=== PATIENT | female | born 1970 | race Caucasian/White ===

== ENCOUNTER 2018-06-08 15:35 | Emergency (ER) | payer OTHER ==
--- OUTSIDE RECORDS SUMMARY | 2018-06-08 15:46 | XMS REPORT | Continuity of Care Document ---
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 H/O: Active Problem 10/26/2017 [facility] hypothyroidism [facility] Morbid obesity Active Problem 10/26/2017 [facility] Motion sickness Active Problem 10/26/2017 [facility] BREAKDOWN Active [facility] (MECHANICAL) OF [place] PROSTH DEV/ Medications Medication Details Route Status Patient Ordering Order Source Instructions Provider Date ferrous sulfate 325 mg=1 tab, Active 325 mg oral PO, Daily, # [address] [place] [address] enteric coated tab, 3 Refill(s) [facility] tablet 1/2NS + KCL 1,000 mL, Rate: No Longer 20mEq/L 1000ml 80 ml/hr, Infuse [address] ([facility]) 1,000 over: 12.5 hr, [facility] mL Route: IV, Dosing Weight 113.636 kg, Total Volume: 1,000, Start date: 10/22/17 6:00:00 EDGER LINER, Duration: 30 day, Stop date: 11/21/17 5:59:00 EDGER LINER, 2.35, [id number]: PREMIX IV - Do Not Alter WASTE: F/P - Sink; E - [employer] heparin sodium, 5,000 unit, 1 No Longer porcine 2500 mL, Route: [address] UNT/ML SUB-Q, Drug [facility] Injectable form: INJ, Q12H, Solution Dosing Weight 113.636, kg, Start date: 10/22/17 3:00:00 EDGER LINER, Duration: 30 day, Stop date: 11/20/17 15:00:00 CSTNotes: porcine heparin Famotidine 20 mg, 2 mL, No Longer Route: IVP, Drug [address] form: INJ, Q12H, [facility] Dosing Weight 113.636, kg, Start date: 10/21/17 21:00:00 EDGER LINER, Duration: 30 day, Stop date: 11/20/17 9:00:00 CSTNotes: (Same as: Pepcid) Can be dilute in 5-10cc NS IVP: Slow IV push over at least 2 minutes. sugammadex Route: IV, Drug Inactive (ANES) form: SOLN, [address] [place] [address] ONCE, Stop date: [facility] 10/21/17 14:38:00 EDGER LINER ketOROLAC IV, ONCE Inactive 10/21[facility] (ANES) [address] [place] [address] ondansetron Route: IV, Drug Inactive 10/21[facility] (ANES) form: INJ, ONCE, 2016 [facility] Stop date: [facility] 10/21/17 14:38:00 EDGER LINER Morphine 2 mg, Route: Inactive 10/21[facility] IVP, Q5Min, [address] [place] [address] Dosing Weight [facility] 113.636, kg, PRN Pain Score 4-6, Start date: 10/21/17 14:26:00 EDGER LINER, Duration: 5 doses or times, Stop date: Limited # of times Flumazenil 0.2 mg, Route: Inactive 10/21[facility] IVP, PRN, Dosing 2016 [facility] Weight 113.636, City kg, PRN Benzodiazepine Reversal, Initial dose, Start date: 10/21/17 14:26:00 EDGER LINER, Duration: 30 day, Stop date: 11/20/17 14:25:00 EDGER LINER Naloxone 0.4 mg, Route: Inactive 10/21[facility] IVP, Q2MIN, 2016 [facility] Dosing Weight [facility] 113.636, kg, PRN Narcotic Reversal, Start date: 10/21/17 14:26:00 EDGER LINER, Duration: 8 doses or times, Stop date: Limited # of times Hydromorphone 0.5 mg, Route: Inactive 10/21[facility] IVP, Q5Min, 2016 [facility] Dosing Weight [facility] 113.636, kg, PRN Pain Score 7-10, Start date: 10/21/17 14:26:00 EDGER LINER, Duration: 4 doses or times, Stop date: Limited # of times Promethazine 6.25 mg, Route: Inactive 10/21[facility] IVPB, ONCE, 2016 [facility] Dosing Weight [facility] 113.636, kg, PRN Nausea & Vomiting, Start date: 10/21/17 14:26:00 EDGER LINER Ondansetron 4 mg, Route: Inactive IVP, ONCE, 2016 [facility] Dosing Weight [facility] 113.636, kg, PRN Nausea & Vomiting, Start date: 10/21/17 14:26:00 EDGER LINER Calcium 1,000 mL, Rate: Inactive Chloride 0.0014 125 ml/hr, 2016 [facility] MEQ/ML / Infuse over: 8 City Potassium hr, Route: IV, Chloride 0.004 Dosing Weight MEQ/ML / Sodium 113.636 kg, Chloride 0.103 Total Volume: MEQ/ML / Sodium 1,000, Start Lactate 0.028 date: 10/21/17 MEQ/ML 14:26:00 EDGER LINER, Injectable Duration: 30 Solution day, Stop date: 11/20/17 14:25:00 EDGER LINER, 2.35, m2 fentaNYL (ANES) Route: IV, Drug Inactive MH form: INJ, ONCE, 2016 [facility] Stop date: [facility] 10/21/17 13:50:00 EDGER LINER ePHEDrine Route: IV, Drug Inactive MH (ANES) form: INJ, ONCE, 2016 [facility] Stop date: [facility] 10/21/17 12:44:00 EDGER LINER dexamethasone Route: IV, Drug Inactive MH (ANES) form: INJ, ONCE, 2016 [facility] Stop date: [facility] 10/21/17 12:24:00 EDGER LINER famotidine Route: IV, Drug Inactive MH (ANES) form: INJ, ONCE, 2016 [facility] Stop date: [facility] 10/21/17 12:24:00 EDGER LINER scopolamine Route: Inactive MH (ANES) Transdermal, 2016 [facility] Drug form: [facility] ERFILM, ONCE, Stop date: 10/21/17 12:24:00 EDGER LINER midazolam Route: IV, Drug Inactive MH (ANES) form: SOLN, 2016 [facility] ONCE, Stop date: [facility] 10/21/17 12:19:00 EDGER LINER fentaNYL (ANES) Route: IV, Drug Inactive MH form: INJ, ONCE, 2016 [facility] Stop date: [facility] 10/21/17 12:19:00 EDGER LINER lidocaine Route: IV, Drug Inactive 10/21/ MH (ANES) form: INJ, ONCE, 2016 [facility] Stop date: [facility] 10/21/17 12:19:00 EDGER LINER propofol (ANES) Route: IV, Drug Inactive MH form: INJ, ONCE, 2016 [facility] Stop date: [facility] 10/21/17 12:19:00 EDGER LINER rocuronium Route: IV, Drug Inactive (ANES) form: INJ, ONCE, 2016 [facility] Stop date: [facility] 10/21/17 12:19:00 EDGER LINER ceFAZolin Route: IV, Drug Inactive (ANES) form: INJ, ONCE, 2016 [facility] Stop date: [facility] 10/21/17 12:19:00 EDGER LINER acetaminophen Route: IV, Drug Inactive (ANES) 10 mg form: INJ, Start 2016 [facility] date: 10/21/17 [facility] 12:00:00 EDGER LINER, Stop date: 10/21/17 13:00:00 EDGER LINER Lactated Route: IV, Total Inactive Ringers Volume: 1,000, 2016 [facility] Injection IV Start date: [facility] (ANES) 1000 mL 10/21/17 11:30:00 EDGER LINER, Stop date: 10/21/17 12:30:00 EDGER LINER 1/2NS + KCL 1,000 mL, Rate: No Longer 20mEq/L 1000ml 125 ml/hr, Active 2016 [facility] ([facility]) 1,000 Infuse over: 8 City mL hr, Route: IV, Dosing Weight 113.636 kg, Total Volume: 1,000, Start date: 10/21/17 11:09:00 EDGER LINER, Stop date: 10/22/17 6:00:00 EDGER LINER, 2.35, [id number]: PREMIX IV - Do Not Alter WASTE: F/P - Sink; E - [employer] Trash Bin Saline Flush 10 ml, Route: No Longer 0.9% IVP, Drug Form: Active 2016 [facility] INJ, Dosing City Weight 113.636, kg, PRN, PRN Line Flush, Start date: 10/21/17 11:09:00 EDGER LINER, Duration: 30 day, Stop date: 11/20/17 11:08:00 CSTNotes: (Same as: BD Posiflush) Morphine 4 mg, 1 mL, No Longer Route: IVP, Drug Active 2016 [facility] form: SOLN, Q4H, [facility] Dosing Weight 113.636, kg, PRN Pain Score 7-10, Start date: 10/21/17 11:09:00 EDGER LINER, Duration: 1 day, Stop date: 10/22/17 11:08:00 CSTNotes: (Same as:MORPhine Sulfate) Demerol HCl 50 mg, 1 mL, No Longer Route: IVP, Drug Active 2016 [facility] form: INJ, Q4H, [facility] Dosing Weight 113.636, kg, PRN Pain Score 6-10, Start date: 10/21/17 11:09:00 EDGER LINER, Duration: 4 day, Stop date: 10/25/17 11:08:00 CSTNotes: (Same as: Demerol) "Use Precaution in Elderly, Seizure disorders, and Renal impairment" tramadol 50 mg, 1 tab, No Longer hydrochloride Route: PO, Drug Active 2016 [facility] 50 MG Oral form: TAB, Q4H, [facility] Tablet Dosing Weight 113.636, kg, PRN Pain Score 1-3, Start date: 10/21/17 11:09:00 EDGER LINER, Duration: 30 day, Stop date: 11/20/17 11:08:00 CSTNotes: Not to exceed 400mg/day. (Same As: Ultram) ketOROLAC 30 30 mg, 1 mL, No Longer mg/mL Route: IVP, Drug Active 2016 [facility] injectable form: INJ, Q6H, [facility] solution Dosing Weight 113.636, kg, PRN Pain Score 4-6, Start date: 10/21/17 11:09:00 EDGER LINER, Duration: 4 day, Stop date: 10/25/17 11:08:00 CSTNotes: (Same as:Toradol) IV bolus must be given >15 seconds. Give IM administration slowly and deeply into the muscle. Not for use > 4 days MEDICATION WASTE Product Size: 30 mg Product Wasted: ___ mg Ofirmev 1,000 mg, 100 No Longer mL, Route: IV, Active 2016 [facility] Drug form: INJ, City PRN, Dosing Weight 113.636, kg, PRN Pain Score 1-3, for > or=50 kg, Start date: 10/21/17 11:09:00 EDGER LINER, Duration: 30 day, Stop date: 11/20/17 11:08:00 CSTNotes: Infuse over 15 minutes Do not exceed 4gm/day of acetaminophen MEDICATION WASTE Product Size: 1000 mg Product Wasted: ___ mg enalaprilat 1.25 mg, 1 mL, No Longer Route: IVP, Drug Active 2016 [facility] form: INJ, Q6H, [facility] Dosing Weight 113.636, kg, PRN Other -See Comment, Start date: 10/21/17 11:09:00 EDGER LINER, Duration: 30 day, Stop date: 11/20/17 11:08:00 EDGER LINER, BP Systolic greater than 190 and BP Diastolic greater than 100 |...Notes: (Same as: Vasotec-IV) Metoprolol 2.5 mg, 2.5 mL, No Longer Route: IVP, Drug Active 2016 [facility] form: INJ, Q6H, [facility] Dosing Weight 113.636, kg, PRN Elevated BP, Systolic BP >180 or Diastolic BP >100, Start date: 10/21/17 11:09:00 EDGER LINER, Duration: 30 day, Stop date: 11/20/17 11:08:00 CSTNotes: (Same as: Lopressor) Push over 2 minutes Promethazine 12.5 mg, 0.5 mL, No Longer Route: IM, Drug Active 2016 [facility] form: INJ, Q4H, [facility] Dosing Weight 113.636, kg, PRN Nausea & Vomiting, Start date: 10/21/17 11:09:00 EDGER LINER, Duration: 30 day, Stop date: 11/20/17 11:08:00 CSTNotes: Do not give IV push. (Same as: Phenergan) Ketorolac 30 mg, Route: Inactive IVP, PRN, Dosing 2016 [facility] Weight 113.636, City kg, PRN Pain Score 1-5, PRN q 6 hrs, Start date: 10/21/17 11:09:00 EDGER LINER, Duration: 6 doses or times, Stop date: Limited # of times Ondansetron 4 mg, 2 mL, No Longer Route: IVP, Drug Active 2016 [facility] form: INJ, Q6H, [facility] Dosing Weight 113.636, kg, PRN Nausea & Vomiting, Start date: 10/21/17 11:09:00 EDGER LINER, Duration: 30 day, Stop date: 11/20/17 11:08:00 CSTNotes: (Same as: Zofran) MEDICATION WASTE Product Size: 4 mg Product Wasted: ___ mg heparin 5,000 unit, 1 Inactive 10/21[facility] mL, Route: 2016 [facility] SUB-Q, Drug [facility] form: INJ, POST OP, Start date: 10/21/17 3:00:00 EDGER LINER, Stop date: 10/21/17 23:00:00 CSTNotes: porcine heparin ceFAZolin + 2 gm, Route: Inactive 10/21[facility] sterile water IVP, PRE OP, 2016 [facility] 20 mL Start date: [facility] 10/21/17 3:00:00 EDGER LINER, Stop date: 10/21/17 23:00:00 EDGER LINER, ABX Indication: Surgical ProphylaxisNotes : (Same As: Ancef Kefzol) MEDICATION WASTE Product Size: 1000 mg Product Wasted: ___ mg levothyroxine 175 microgram=1 Active 10/19[facility] 175 mcg (0.175 tab, PO, Daily, 2016 [facility]) oral tablet # 90 tab, 1 [facility] Refill(s) Allergies, Adverse Reactions, Alerts Substance Category Reaction Severity Reaction Status Date Comments Source type Reported Toprol-XL Assertion Drug Active allergy [facility] Immunizations Immunization Date Given Site Status Last Updated Comments Source Results Order Name Results Value Reference Date Interpretation Comments Source Range CHEM PANEL eGFR 59 10/23 Result Comment: The eGFR is calculated using the CKD-EPI formula. In most young, healthy individuals the eGFR will be >90 mL/ min/1.73m2. The eGFR declines with age. An eGFR of 60-89 may be normal in mL/min/1. /2016 some populations, particularly the elderly, for whom the CKD-EPI formula has not been extensively validated. Use of the eGFR is not recommended in the following populations: [address] Individuals with unstable creatinine concentrations, including patients and those with serious co-morbid conditions. Patients with extremes in muscle mass or diet. The data above are obtained from the National Kidney Disease Education Program (NKDEP) which additionally recommends that when the eGFR is used in patients with extremes of body mass index for purposes of drug dosing, the eGFR should be multiplied by the estimated BMI. CHEM PANEL Creatinine 1.12 mg/dL 0.50 - 10/23 MH Lvl 1.40 [facility] CHEM PANEL Calcium Lvl 8.0 mg/dL 8.5 - 10.5 10/23 [facility] CHEM PANEL CO2 28 meq/L 24 - 32 10/23 [facility] CHEM PANEL Chloride Lvl 106 meq/L 95 - 109 10/23 [facility] CHEM PANEL Sodium Lvl 142 meq/L 135 - 145 10/23 [facility] CHEM PANEL Potassium 4.5 meq/L 3.5 - 5.1 10/23 MH Lvl /2016 [facility] CHEM PANEL BUN 7 mg/dL 7 - 22 10/23 [facility] CHEM PANEL Glucose Lvl 87 mg/dL 70 - 99 10/23 [facility] CHEM PANEL AGAP 12.5 meq/L 10.0 - 10/23 20.0 [facility] HEMATOLOGY Basophils 1.0 % 0.0 - 1.0 10/23 [facility] HEMATOLOGY Lymphocytes 2.1 K/CMM 1.0 - 5.5 10/23 [facility] HEMATOLOGY Eosinophils 1.1 % 0.0 - 4.0 10/23 [facility] HEMATOLOGY Segs-Bands # 3.9 K/CMM 1.5 - 8.1 10/23 [facility] HEMATOLOGY Eosinophils 0.1 K/CMM 0.0 - 0.5 10/23 [facility] HEMATOLOGY Microcyte 2+ None Seen 10/23 [facility] *[facility]* [facility] (10/23/17 6:15 AM) HEMATOLOGY Monocytes # 0.6 K/CMM 0.0 - 0.8 10/23 [facility] HEMATOLOGY Basophils # 0.1 K/CMM 0.0 - 0.2 10/23 [facility] HEMATOLOGY Lymphocytes 31.9 % 20.0 - 10/23 40.0 [facility] HEMATOLOGY Segs 57.8 % 45.0 - 10/23 75.0 [facility] HEMATOLOGY Plt Morph Normal 10/23 [facility] (10/23/17 6:15 AM) [facility] HEMATOLOGY Monocytes 8.2 % 2.0 - 12.0 10/23 [facility] HEMATOLOGY Hgb 8.6 g/dL 12.0 - 10/23 16.0 [facility] HEMATOLOGY Hct 26.8 % 36.0 - 10/23 MH 48.0 [facility] HEMATOLOGY MCH 23.4 pg 27.0 - 10/23 MH 31.0 [facility] HEMATOLOGY MCV 72.7 fL 80.0 - 10/23 MH 98.0 [facility] HEMATOLOGY MCHC 32.2 g/dL 32.0 - 10/23 MH 36.0 [facility] HEMATOLOGY RBC 3.69 M/CMM 4.20 - 10/23 MH 5.40 [facility] HEMATOLOGY WBC 6.7 K/CMM 3.7 - 10.4 10/23 [facility] HEMATOLOGY MPV 9.9 fL 7.4 - 10.4 10/23 [facility] HEMATOLOGY Platelet 264 K/CMM 133 - 450 10/23 [facility] HEMATOLOGY RDW 18.0 % 11.5 - 10/23 14. [facility] ANEMIA TIBC 391 ug/dl 228 - 428 10/22 [facility] ANEMIA Iron 28 ug/dl 30 - 160 10/22 [facility] ANEMIA % S[place] Fe 7 % 12 - 57 10/22 [facility] ANEMIA UIBC 363 ug/dl 110 - 370 10/22 [facility] ANEMIA Ferritin Lvl 5 ng/mL 5 - 204 10/22 [facility] ELECTROLYTE AGAP 13.6 meq/L 10.0 - 10/22 S 20.0 [facility] ELECTROLYTE eGFR 60 10/22 Result Comment: The eGFR is calculated using the CKD-EPI formula. In most young, healthy individuals the eGFR will be >90 mL/ min/1.73m2. The eGFR declines with age. An eGFR of 60-89 may be normal in S mL/min/1. some populations, particularly the elderly, for whom the CKD-EPI formula has not been extensively validated. Use of the eGFR is not recommended in the following populations: [address] Individuals with unstable creatinine concentrations, including patients and those with serious co-morbid conditions. Patients with extremes in muscle mass or diet. The data above are obtained from the National Kidney Disease Education Program (NKDEP) which additionally recommends that when the eGFR is used in patients with extremes of body mass index for purposes of drug dosing, the eGFR should be multiplied by the estimated BMI. ELECTROLYTE BUN 9 mg/dL 7 - 22 10/22 S /2016 [facility] ELECTROLYTE Creatinine 1.10 mg/dL 0.50 - 10/22 S Lvl 1.40 [facility] ELECTROLYTE CO2 28 meq/L 24 - 32 10/22 S /2016 [facility] ELECTROLYTE Glucose Lvl 121 mg/dL 70 - 99 10/22 S [facility] ELECTROLYTE Potassium 4.6 meq/L 3.5 - 5.1 10/22 S Lvl /2016 [facility] ELECTROLYTE Chloride Lvl 102 meq/L 95 - 109 10/22 S [facility] ELECTROLYTE Calcium Lvl 8.2 mg/dL 8.5 - 10.5 10/22 S [facility] ELECTROLYTE Sodium Lvl 139 meq/L 135 - 145 10/22 [facility] HEMATOLOGY Platelet 271 K/CMM 133 - 450 10/22 [facility] HEMATOLOGY RDW 17.9 % 11.5 - 10/22 14. [facility] HEMATOLOGY MCV 71.6 fL 80.0 - 10/22 98.0 [facility] HEMATOLOGY MCHC 32.3 g/dL 32.0 - 10/22 MH 36.0 [facility] HEMATOLOGY MPV 9.5 fL 7.4 - 10.4 10/22 [facility] HEMATOLOGY Hct 27.3 % 36.0 - 10/22 48.0 [facility] HEMATOLOGY Hgb 8.8 g/dL 12.0 - 10/22 16.0 [facility] HEMATOLOGY MCH 23.1 pg 27.0 - 10/22 31.0 [facility] HEMATOLOGY WBC 9.6 K/CMM 3.7 - 10.4 10/22 [facility] HEMATOLOGY RBC 3.81 M/CMM 4.20 - 10/22 MH 5.40 [facility] HEMATOLOGY Microcyte 2+ None Seen 10/22 [facility] (10/22/17 3:37 AM) HEMATOLOGY Lymphocytes 13.7 % 20.0 - 10/22 MH 40.0 [facility] HEMATOLOGY Monocytes 7.3 % 2.0 - 12.0 10/22 [facility] HEMATOLOGY Segs 78.6 % 45.0 - 10/22 MH 75.0 [facility] HEMATOLOGY Basophils 0.4 % 0.0 - 1.0 10/22 [facility] HEMATOLOGY Segs-Bands # 7.5 K/CMM 1.5 - 8.1 10/22 [facility] HEMATOLOGY Lymphocytes 1.3 K/CMM 1.0 - 5.5 10/22 MH # /2017 [facility] HEMATOLOGY Monocytes # 0.7 K/CMM 0.0 - 0.8 10/22 [facility] BLOOD BANK ABO/Rh A POS 10/19 RESULTS [facility] BLOOD BANK Antibody Negative 10/19 RESULTS [facility] (10/19/17 11:22 AM) [facility] CHEM PANEL eGFR 55 10/19 Result Comment: The eGFR is calculated using the CKD-EPI formula. In most young, healthy individuals the eGFR will be >90 mL/ min/1.73m2. The eGFR declines with age. An eGFR of 60-89 may be normal in mL/min/1. some populations, particularly the elderly, for whom the CKD-EPI formula has not been extensively validated. Use of the eGFR is not recommended in the following populations: [address] Individuals with unstable creatinine concentrations, including patients and those with serious co-morbid conditions. Patients with extremes in muscle mass or diet. The data above are obtained from the National Kidney Disease Education Program (NKDEP) which additionally recommends that when the eGFR is used in patients with extremes of body mass index for purposes of drug dosing, the eGFR should be multiplied by the estimated BMI. CHEM PANEL ALT 43 unit/L 0 - 65 10/19 [facility] CHEM PANEL AST 29 unit/L 0 - 37 10/19 [facility] CHEM PANEL Glucose Lvl 102 mg/dL 70 - 99 10/19 [facility] CHEM PANEL Creatinine 1.19 mg/dL 0.50 - 10/19 MH Lvl 1.40 [facility] CHEM PANEL Bili Total 1.4 mg/dL 0.2 - 1.3 10/19 [facility] CHEM PANEL Alk Phos 109 unit/L 39 - 136 10/19 [facility] CHEM PANEL Total 8.2 g/dL 6.4 - 8.4 10/19 [facility] CHEM PANEL Albumin Lvl 3.7 g/dL 3.5 - 5.0 10/19 [facility] CHEM PANEL Calcium Lvl 8.9 mg/dL 8.5 - 10.5 10/19 [facility] CHEM PANEL CO2 29 meq/L 24 - 32 10/19 [facility] CHEM PANEL Chloride Lvl 102 meq/L 95 - 109 10/19 [facility] CHEM PANEL Potassium 3.7 meq/L 3.5 - 5.1 10/19 MH Lvl /2016 [facility] CHEM PANEL Sodium Lvl 141 meq/L 135 - 145 10/19 [facility] CHEM PANEL BUN 10 mg/dL 7 - 22 10/19 [facility] CHEM PANEL B/C Ratio 8 6 - 25 10/19 [facility] CHEM PANEL Globulin 4.5 g/dL 2.7 - 4.2 10/19 [facility] CHEM PANEL A/G Ratio 0.8 0.7 - 1.6 10/19 [facility] CHEM PANEL AGAP 13.7 meq/L 10.0 - 10/19 MH 20.0 /2016 [facility] CHEM PANEL VITAMIN B1 92.5 66.5 - 10/19 Result Comment: (THIAMINE) nMol/L 200.0 This test was developed and its performance characteristics [facility] WHOLE BLOOD determined by [employer]. It has not been cleared or City approved by the Food and Drug Administration. Performed At: [facility] [id number] Mylene Ricardo MD Ph:[phone] HEMATOLOGY Lymphocytes 28.5 % 20.0 - 10/19 MH 40.0 /2016 [facility] HEMATOLOGY Monocytes 8.8 % 2.0 - 12.0 10/19 /2016 [facility] HEMATOLOGY Monocytes # 0.5 K/CMM 0.0 - 0.8 10/19 /2016 [facility] HEMATOLOGY Eosinophils 0.5 K/CMM 0.0 - 0.5 10/19 MH # /2017 [facility] HEMATOLOGY Basophils # 0.1 K/CMM 0.0 - 0.2 10/19 /2016 [facility] HEMATOLOGY Segs 52.3 % 45.0 - 10/19 MH 75.0 /2017 [facility] [place] HEMATOLOGY Eosinophils 9.3 % 0.0 - 4.0 10/19 /2016 [facility] HEMATOLOGY Lymphocytes 1.6 K/CMM 1.0 - 5.5 10/19 MH # /2017 [facility] [place] HEMATOLOGY Basophils 1.1 % 0.0 - 1.0 10/19 [facility] [place] HEMATOLOGY Segs-Bands # 2.9 K/CMM 1.5 - 8.1 10/19 [facility] [place] HEMATOLOGY Microcyte 2+ None Seen 10/19 [facility]* [facility] (10/19/17 11:22 AM) HEMATOLOGY RBC 4.83 M/CMM 4.20 - 10/19 5.40 /2016 [facility] [place] HEMATOLOGY WBC 5.5 K/CMM 3.7 - 10.4 10/19 [facility] [place] HEMATOLOGY Hgb 11.2 g/dL 12.0 - 10/19 16.0 [facility] [place] HEMATOLOGY MCV 72.0 fL 80.0 - 10/19 98.0 /2016 [facility] [place] HEMATOLOGY Hct 34.8 % 36.0 - 10/19 48.0 [facility] [place] HEMATOLOGY MPV 9.3 fL 7.4 - 10.4 10/19 [facility] [place] HEMATOLOGY MCH 23.2 pg 27.0 - 10/19 31.0 [facility] [place] HEMATOLOGY RDW 18.5 % 11.5 - 10/19 14.5 [facility] [place] HEMATOLOGY MCHC 32.1 g/dL 32.0 - 10/19 36.0 [facility] [place] HEMATOLOGY Platelet 311 K/CMM 133 - 450 10/19 [facility] [place] Chest 2 Chest 2 Exam: Chest X-ray 2 views : 10/19 - views DX views DX /2016 - [facility] CLINICAL HISTORY: Dizziness - Dizziness. Read by: Lashay Arvizu MD Dictated Date/time: 10/19/17 13:25 Electronically Signed by: Lashay Arvizu MD 10/19/17 13:28 FINAL REPORT Comparison: None. Findings: PA and lateral views of the chest are obtained. The heart size is normal. The hilar and mediastinal structures are normal. The lungs are clear without consolidation or effusion. No acute bony abnormality. Pulmonary vascularity is normal. Impression: No active disease . Vital Signs Vital Sign Value Date Comments Source Systolic (mm Hg) 109 10/23/2017 [facility] Diastolic (mm Hg) 74 10/23/2017 [facility] Respitory Rate 18 10/23/2017 [facility] Heart Rate 68 10/23/2017 [facility] Temperature Oral (F) 98.0 F 10/23/2017 [facility] Heart Rate 80 10/23/2017 [facility] Temperature Oral (F) 98.2 F 10/23/2017 [facility] Respitory Rate 18 10/23/2017 [facility] Systolic (mm Hg) 110 10/23/2017 [facility] Diastolic (mm Hg) 68 10/23/2017 [facility] Heart Rate 56 10/23/2017 [facility] Systolic (mm Hg) 124 10/23/2017 [facility] Diastolic (mm Hg) 75 10/23/2017 [facility] Respitory Rate 18 10/23/2017 [facility] Temperature Oral (F) 98.5 F 10/23/2017 [facility] BMI Calculated 39.24 10/19/2017 [facility] Weight 113.636 10/19/2017 [facility] Height 170.18 cm 10/19/2017 [facility] Encounters Location Location Encounter Encounter Reason Attending ADM DC Status Source Details Type Number For Provider Date Date Visit [facility] Inpatient [id number] [place] 10/21 10/23 Julio Cesar Sánchezel /2016 [facility] Procedures Procedure Code Date Perfomer Comments Source Duodenal switch [id number] 10/21/2017 [facility] Bariatric operative [id number] Gastric Band [facility] procedure<sup>1[place] p> [id number] X 2 [facility] section<sup>2</sup> [facility] Miscellaneous [id number] revision of [facility] operations<sup>3</s Lap. Band. City up>
[2018-06-08] MEDS ORDERED: METHYLPREDNISOLONE 125 MG INJ ONE (16:26)
[2018-06-08] MEDS ORDERED: DIPHENHYDRAMINE 50 MG/ML VIAL ONE (16:27)
[2018-06-08] MEDS ORDERED: NA CHLORIDE 0.9% 1,000 ML ONE (16:27)
[2018-06-08] MEDS ORDERED: FAMOTIDINE 20 MG/2 ML VIAL IV ONE (16:28)
--- NOTE | 2018-06-08 17:13 | ER ---
Nurse's Notes [facility] Name: Krista Watt Age: 47 yrs Sex: Female : 1970 Arrival Date: 06/08/2018 Time: 15:36 Bed 16 Private MD: Eran Palacios C Diagnosis: Rash and other nonspecific skin eruption Presentation: 06/08 15:52 Presenting complaint: Patient states: i had an iron infusion the 2nd time around 2:15pm today and after the infusion i felt itchy all over my body;. Transition of care: patient was not received from another setting of care. Onset: The symptoms/episode began/occurred suddenly. Anaphylaxis evaluation, no signs or symptoms of anaphylaxis were noted. Onset of symptoms was June 08, 2018. Risk Assessment: Do you want to hurt yourself or someone else? Patient reports no desire to harm self or others. Initial Sepsis Screen: Does the patient meet any 2 criteria? No. Patient's initial sepsis screen is negative. Does the patient have a suspected source of infection? No. Patient's initial sepsis screen is negative. Care prior to arrival: None. 15:52 Method Of Arrival: Ambulatory 15:52 Acuity: TERESA 4 Triage Assessment: 15:55 General: Appears in no apparent distress. uncomfortable, Behavior is calm, cooperative, hj appropriate for age. Pain: Denies pain. 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 - Social history:: Smoking status: Patient/guardian denies using tobacco, Patient/guardian denies using alcohol. - Ebola Screening: : Patient negative for fever greater than or equal to 101.5 degrees Fahrenheit, and additional compatible Ebola Virus Disease symptoms Patient denies exposure to infectious person Patient denies travel to an Ebola-affected area in the 21 days before illness onset. - Family history:: not pertinent. - Hospitalizations: : No recent hospitalization is reported. Screenin:55 Abuse screen: Denies threats or abuse. Denies injuries from another. Nutritional hj screening: No deficits noted. Tuberculosis screening: No symptoms or risk factors identified. Fall Risk None identified. Assessment: 15:55 Respiratory: Airway is patent Respiratory effort is even, unlabored, Breath sounds are hj clear. 16:05 General: Appears uncomfortable, Behavior is calm, cooperative. Pain: Denies pain. aa5 Neuro: Level of Consciousness is awake, alert, obeys commands, Oriented to person, place, time, situation. Cardiovascular: Heart tones S1 S2 present Rhythm is regular. Respiratory: Airway is patent Respiratory effort is even, unlabored, Respiratory pattern is regular, symmetrical, Breath sounds are clear bilaterally. GI: No signs and/or symptoms were reported involving the gastrointestinal system. : No signs and/or symptoms were reported regarding the genitourinary system. EENT: No signs and/or symptoms were reported regarding the EENT system. Derm: Skin is pink, warm \T\ dry. Rash noted that is itchy, red, raised, on all over body. Musculoskeletal: Range of motion: intact in all extremities. 16:50 Reassessment: Patient and/or family updated on plan of care and expected duration. Pain aa5 level reassessed. Patient is alert, oriented x 3, equal unlabored respirations, skin warm/dry/pink. Patient states feeling better. Pt currently denies itchiness, rash has improved in appearance. . 16:50 General: Appears comfortable. aa5 17:20 Reassessment: Patient is alert, oriented x 3, equal unlabored respirations, skin aa5 warm/dry/pink. Vital Signs: 15:56 BP 111 / 60; Pulse 75; Resp 18; Temp 98.3(TE); Pulse Ox 98% on R/A; Weight 88 kg; hj Height 5 ft. 7 in. (170.18 cm); Pain 0/10; 16:27 BP 130 / 76; Pulse 62; Resp 16 S; Pulse Ox 100% on R/A; aa5 15:56 Body Mass Index 30.39 (88.00 kg, 170.18 cm) ED Course: 15:36 Patient arrived in ED. rg4 15:37 Eran Palacios MD is Private Physician. rg4 15:54 Triage completed. 15:56 Arm band placed on right wrist. hj 15:56 Patient has correct armband on for positive identification. Bed in low position. Call hj light in reach. Side rails up X 1. 16:03 Susy Ken FNP [facility]. kav 16:03 Chato Boykin MD is Attending Physician. kav 16:18 Sandra Olson, RN is Primary Nurse. aa5 16:20 Inserted saline lock: 20 gauge in left antecubital area, using aseptic technique. aa5 16:39 No provider procedures requiring assistance completed. aa5 17:12 Eran Palacios MD is Referral Physician. kav 17:22 IV discontinued, intact, bleeding controlled, No redness/swelling at site. Pressure aa5 dressing applied. Administered Medications: 16:20 Drug: NS 0.9% 1000 ml Route: IV; Rate: 1000 ml; Site: left antecubital; aa5 17:20 Follow up: IV Status: Completed infusion aa5 16:20 Drug: Benadryl 50 mg Route: IVP; Site: left antecubital; aa5 16:30 Follow up: Response: No adverse reaction aa5 16:20 Drug: SOLU-Medrol 125 mg Route: IVP; Site: left antecubital; aa5 16:30 Follow up: Response: No adverse reaction aa5 16:20 Drug: Pepcid 20 mg Route: IVP; Site: left antecubital; aa5 16:30 Follow up: Response: No adverse reaction aa5 Outcome: 17:12 Discharge ordered by MD. kav 17:23 Discharged to home ambulatory, with family. aa5 17:23 Condition: improved 17:23 Discharge instructions given to patient, Instructed on discharge instructions, follow up and referral plans. medication usage, Demonstrated understanding of instructions, follow-up care, medications, Prescriptions given X 2. 17:25 Patient left the ED. aa5 Signatures: Susy Ken FNP DATE PULLER Sandra Tipton, RN RN aa5 Hadley Lehman RN RN Niecy Davila rg4 Corrections: (The following items were deleted from the chart) 15:59 15:56 Pulse 75bpm; Resp 18bpm; Pulse Ox 98% RA; Temp 98.3F Temporal; 88 kg; Height 5 hj ft. 7 in.; BMI: 30.3; Pain 0/10; hj
--- NOTE | 2018-06-08 17:13 | EDPHYS ---
Physician Documentation [facility] Name: Krista Watt Age: 47 yrs Sex: Female : 1970 Arrival Date: 06/08/2018 Time: 15:36 Bed 16 Private MD: Eran Palacios C ED Physician Chato Boykin HPI: 06/08 16:04 This 47 yrs old Female presents to ER via Ambulatory with complaints of kav Allergic Reaction. 16:09 The patient presents with itching, rash, redness of skin. Onset: The symptoms/episode kav began/occurred acutely, just prior to arrival. Associated signs and symptoms: Pertinent positives: rash, Pertinent negatives: Altered mental status fever, headache, hives, shortness of breath, swelling, vomiting. Possible causes: patient reports that she just received an iron infusion and then developed itching, and rash diffusely over entire body. At home the patient or guardian has treated the symptoms with nothing. Severity of symptoms: At their worst the symptoms were moderate just prior to arrival. The patient has not experienced similar symptoms in the past. The patient has been recently seen by a physician: Dr. Aldrich. 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 - Social history:: Smoking status: Patient/guardian denies using tobacco, Patient/guardian denies using alcohol. - Ebola Screening: : Patient negative for fever greater than or equal to 101.5 degrees Fahrenheit, and additional compatible Ebola Virus Disease symptoms Patient denies exposure to infectious person Patient denies travel to an Ebola-affected area in the 21 days before illness onset. - Family history:: not pertinent. - Hospitalizations: : No recent hospitalization is reported. ROS: 16:09 Constitutional: Negative for fever, chills, and weight loss, Eyes: Negative for injury, kav pain, redness, and discharge, ENT: Negative for injury, pain, and discharge, Neck: Negative for injury, pain, and swelling, Cardiovascular: Negative for chest pain, palpitations, and edema, Respiratory: Negative for shortness of breath, cough, wheezing, and pleuritic chest pain, Abdomen/GI: Negative for abdominal pain, nausea, vomiting, diarrhea, and constipation, Back: Negative for injury and pain, : Negative for injury, bleeding, discharge, and swelling, MS/Extremity: Negative for injury and deformity, Neuro: Negative for headache, weakness, numbness, tingling, and seizure, Psych: Negative for depression, anxiety, suicide ideation, homicidal ideation, and hallucinations, Allergy/Immunology: Negative for hives, rash, and allergies, Endocrine: Negative for neck swelling, polydipsia, polyuria, polyphagia, and marked weight changes, Hematologic/Lymphatic: Negative for swollen nodes, abnormal bleeding, and unusual bruising. 16:09 Skin: Positive for erythema, rash, Negative for cellulitis, swelling. Exam: 16:09 Constitutional: This is a well developed, well nourished patient who is awake, alert, kav and in no acute distress. Head/Face: Normocephalic, atraumatic. Eyes: Pupils equal round and reactive to light, extra-ocular motions intact. Lids and lashes normal. Conjunctiva and sclera are non-icteric and not injected. Cornea within normal limits. Periorbital areas with no swelling, redness, or edema. ENT: Nares patent. No nasal discharge, no septal abnormalities noted. Tympanic membranes are normal and external auditory canals are clear. Oropharynx with no redness, swelling, or masses, exudates, or evidence of obstruction, uvula midline. Mucous membranes moist. Neck: Trachea midline, no thyromegaly or masses palpated, and no cervical lymphadenopathy. Supple, full range of motion without nuchal rigidity, or vertebral point tenderness. No Meningismus. Chest/axilla: Normal chest wall appearance and motion. Nontender with no deformity. No lesions are appreciated. Cardiovascular: Regular rate and rhythm with a normal S1 and S2. No gallops, murmurs, or rubs. Normal PMI, no JVD. No pulse deficits. Respiratory: Lungs have equal breath sounds bilaterally, clear to auscultation and percussion. No rales, rhonchi or wheezes noted. No increased work of breathing, no retractions or nasal flaring. Abdomen/GI: Soft, non-tender, with normal bowel sounds. No distension or tympany. No guarding or rebound. No evidence of tenderness throughout. Back: No spinal tenderness. No costovertebral tenderness. Full range of motion. MS/ Extremity: Pulses equal, no cyanosis. Neurovascular intact. Full, normal range of motion. Neuro: Awake and alert, GCS 15, oriented to person, place, time, and situation. Cranial nerves II-XII grossly intact. Motor strength 5/5 in all extremities. Sensory grossly intact. Cerebellar exam normal. Normal gait. Psych: Awake, alert, with orientation to person, place and time. Behavior, mood, and affect are within normal limits. 16:09 Skin: drug rash, and is diffusely located. Vital Signs: 15:56 BP 111 / 60; Pulse 75; Resp 18; Temp 98.3(TE); Pulse Ox 98% on R/A; Weight 88 kg; hj Height 5 ft. 7 in. (170.18 cm); Pain 0/10; 16:27 BP 130 / 76; Pulse 62; Resp 16 S; Pulse Ox 100% on R/A; aa5 15:56 Body Mass Index 30.39 (88.00 kg, 170.18 cm) hj MDM: 16:03 Medical screening is not applicable. ka 17:13 Data reviewed: vital signs, nurses notes. ka Administered Medications: 16:20 Drug: NS 0.9% 1000 ml Route: IV; Rate: 1000 ml; Site: left antecubital; aa5 17:20 Follow up: IV Status: Completed infusion aa5 16:20 Drug: Benadryl 50 mg Route: IVP; Site: left antecubital; aa5 16:30 Follow up: Response: No adverse reaction aa5 16:20 Drug: SOLU-Medrol 125 mg Route: IVP; Site: left antecubital; aa5 16:30 Follow up: Response: No adverse reaction aa5 16:20 Drug: Pepcid 20 mg Route: IVP; Site: left antecubital; aa5 16:30 Follow up: Response: No adverse reaction aa5 Disposition: 18:45 Co-signature as Attending Physician, Chato Boykin MD. rn Disposition: 06/08/18 17:12 Discharged to Home. Impression: Rash and other nonspecific skin eruption. - Condition is Stable. - Discharge Instructions: Drug Rash, Rash. - Prescriptions for Vistaril 25 mg Oral capsule - take 1 capsule by ORAL route 3 times per day; 30 capsule. Medrol (Ousmane) 4 mg Oral Tablets, Dose Pack - take 1 tablet by ORAL route as directed - follow package instructions; 1 packet. - Medication Reconciliation Form, Thank You Letter, Antibiotic Education form. - Follow up: A Palacios; When: 2 - 3 days; Reason: If symptoms return, Recheck today's complaints, Continuance of care, Re-evaluation by your physician. - Problem is new. - Symptoms have improved. Signatures: Susy Ken, HEDDLE MACHINE OPERATOR HEDDLE MACHINE OPERATOR Chato Pierre MD MD rn Calderon, Audri RN RN aa5 Hadley Lehman RN RN hj Corrections: (The following items were deleted from the chart) 17:25 17:12 06/08/2018 17:12 Discharged to Home. Impression: Rash and other nonspecific skin aa5 eruption. Condition is Stable. Discharge Instructions: Chronic Obstructive Pulmonary Disease. Prescriptions for Vistaril 25 mg Oral capsule - take 1 capsule by ORAL route 3 times per day; 30 capsule, Medrol (Ousmane) 4 mg Oral Tablets, Dose Pack - take 1 tablet by ORAL route as directed - follow package instructions; 1 packet. and Forms are Medication Reconciliation Form, Thank You Letter, Antibiotic Education, Prescription Opioid Use. Follow up: A Palacios; When: 2 - 3 days; Reason: If symptoms return, Recheck today's complaints, Continuance of care, Re-evaluation by your physician. Problem is new. Symptoms have improved. katie
== END 2018-06-08 17:25 | disposition home or self-care (01) ==
LOC: ER 15:35
DX: R21 Rash and other nonspecific skin eruption (principal); E07.9 Disorder of thyroid, unspecified; Z88.8 Allergy status to other drugs, medicaments and biological substances
CPT/HCPCS: 96361; 96374; 96375; 99283; J2930; J7030

== ENCOUNTER 2020-06-11 12:23 | Observation (INO) | payer OTHER ==
--- OUTSIDE RECORDS SUMMARY | 2020-06-11 12:42 | XMS REPORT | Continuity of Care Document ---
:1970 Author Organization [facility] [place] Information [employer] Care Team Providers Name Role Phone [facility] Information [employer] Unavailable Un available Problems Problem Status Onset Classification Date Comments Sourc e Date Reported DECREASED WBC Active 06/06/20 [facility] 20 Julio Cesar UNKNOWN Active 01/21/20 [facility] l 19 City ACID REFLUX Active 01/21/20 [facility] ial 19 City Calculus of 10/11/20 [facility] Cit y chronic cholecystitis without obstruction 95071, ABDOMINAL Active 09/27/20 [facility] PAIN, 18 City CHOLECYSTITIS [id number],T85.51 Active 10/12/20 [facility] 8A,BREAKDOWN 17 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 Cholecystitis Active Problem 04/23/2019 [facility] morial (disorder) [facility] History of - Active Problem 04/23/2019 [facility] oriia hypothyroidism [facility] (context-dependent category) Morbid obesity Active Problem 04/23/2019 [facility] emoriia (disorder) [facility] Motion sickness Active Problem 04/23/2019 [facility] (disorder) [facility] Hypothyroidism, 04/23/2019 [facility] unspecified City BREAKDOWN [facility] ity PROSTH DEV/ Medications Medication Details Route Status Patient Ordering Order Source Instructions Provider Date Vitamin A 2400, PO, Daily, Active 0 Refill(s) 2018 [facility] Vitamin D3 10,000 10,000 IntlUnit Active intl units oral = 1 cap, PO, 0 2018 [facility] capsule Refill(s) [facility] Multiicomplete Multiicomplete, Active H PO, Daily, 2018 [facility] Refill(s) 0 [facility] Robinul 0.2 mg, Route: Inactive IV, ONCE, Dosing 2017 [facility] Weight 82.472, City kg, Start date: 10/04/18 9:36:00 [employer] CENTER DIRECTOR, Stop date: 10/04/18 9:36:00 ASS[employer] CENTER DIRECTOR enalapril 1.25 mg, Route: Inactive IVP, Q6H, Dosing 2018 Magy l Weight 82.472, City kg, PRN Hypertension, Start date: 10/04/18 8:42:00 ASSISTANT CENTER DIRECTOR, Duration: 30 day, Stop date: 11/03/18 8:41:00 [employer] C[facility] DIRECTOR Acetaminophen 15 mL, Route: Inactive 21.7 MG/ML / PO, Dosing 2017 [facility] Hydrocodone Weight 82.472, [facility] Bitartrate 0.67 kg, Q4H, PRN MG/ML Oral Pain Score 4-6, Solution Start date: 10/04/18 8:42:00 ASS[employer]ANT CENTER DIRECTOR, Duration: 30 day, Stop date: 11/03/18 8:41:00 [employer] CENTER DIRECT[employer] Promethazine 12.5 mg, Route: Inactive IM, Q4H, Dosing 2017 [facility] Weight 82.472, City kg, PRN Nausea & Vomiting, Start date: 10/04/18 8:42:00 ASSISTANT CENTER DIRECTOR, Duration: 30 day, Stop date: 11/03/18 8:41:00 [employer] CENTER DIRECTOR Acetaminophen 100.4 F, Start Inactive H date: 10/04/182017 [facility] 8:42:00 ASSISTANT CENTER DIRECTOR, City Duration: 30 day, Stop date: 11/03/18 8:41:00 ASSISTANT CENTER DIRECTOR Calcium Chloride 1,000 mL, Rate: Inactive 0.0014 MEQ/ML / 125 ml/hr, 2018 [facility] Potassium Infuse over: 8 City Chloride 0.004 hr, Route: IV, MEQ/ML / Sodium Dosing Weight Chloride 0.103 82.472 kg, Total MEQ/ML / Sodium Volume: 1,000, Lactate 0.028 Start date: MEQ/ML Injectable 10/04/18 8:42:00 Solution [employer] CENTER DIRECTOR, Duration: 30 day, Stop date: 11/03/18 8:41:00 ASSISTANT CENTER DIRECTOR, 2.01, m2 neostigmine Route: IV, Drug Inactive (ANES) form: INJ, ONCE, 2017 [facility] Stop date: [facility] 10/04/18 8:32:00 ASSISTANT CENTER DIRECTOR glycopyrrolate Route: IV, Drug Inactive (ANES) form: INJ, ONCE, 2017 [facility] Stop date: [facility] 10/04/18 8:32:00 ASSISTANT CENTER DIRECTOR ketOROLAC (ANES) IV, ONCE Inactive [address] [place] [address] ondansetron Route: IV, Drug Inactive MH (ANES) form: INJ, ONCE, 2017 [facility] Stop date: [facility] 10/04/18 8:32:00 ASSISTANT CENTER DIRECTOR propofol (ANES) Route: IV, Drug Inactive form: INJ, ONCE, 2017 [facility] Stop date: [facility] 10/04/18 8:32:00 ASSISTANT CENTER DIRECTOR rocuronium (ANES) Route: IV, Drug Inactive 10/04 form: INJ, ONCE, 2017 [facility] Stop date: [facility] 10/04/18 8:22:00 ASSISTANT CENTER DIRECTOR lidocaine (ANES) Route: IV, Drug Inactive form: INJ, ONCE, 2017 [facility] l Stop date: [facility] 10/04/18 8:22:00 ASSISTANT CENTER DIRECTOR dexamethasone Route: IV, Drug Inactive M H (ANES) form: INJ, ONCE, 2017 [facility] l Stop date: [facility] 10/04/18 8:22:00 ASSISTANT CENTER DIRECTOR fentaNYL (ANES) Route: IV, Drug Inactive form: INJ, ONCE, 2017 [facility] Stop date: [facility] 10/04/18 8:22:00 ASSISTANT CENTER DIRECTOR ceFAZolin (ANES) Route: IV, Drug Inactive form: INJ, ONCE, 2017 [facility] l Stop date: [facility] 10/04/18 8:17:00 ASSISTANT CENTER DIRECTOR midazolam (ANES) Route: IV, Drug Inactive form: MARGO 2017 [facility] ONCE, Stop date: [facility] 10/04/18 8:07:00 ASSISTANT CENTER DIRECTOR acetaminophen Route: IV, Drug Inactive 10/04/ M H (ANES) 10 mg form: INJ, Start 2017 [place] morial date: 10/04/18 [facility] 7:51:00 ASSISTANT CENTER DIRECTOR, Stop date: 10/04/18 8:51:00 ASSISTANT CENTER DIRECTOR Lactated Ringers Route: IV, Total Inactive 10/04 Injection IV Volume: 1,000, 2017 Román rial (ANES) 1000 mL Start date: [facility] 10/04/18 7:34:00 ASSISTANT CENTER DIRECTOR, Stop date: 10/04/18 8:34:00 ASS[employer]ANT CENTER DIRECTOR Promethazine Notes: Do not Inactive give IV push. 2017 [facility] (Same as: City Phenergan) Morphine Notes: (Same Inactive as:MORPhine 2018 [facility] Sulfate) [facility] Ephedrine Notes: final Inactive concentration 5 2018 [facility] mg/mL [facility] Atropine Notes: Inactive MEDICATION WASTE 2018 [facility] Product City Size: 0.4 mg Product Wasted: ___ mg Flumazenil Notes: (Same as: Inactive Romazicon) 2018 [facility] Naloxone Notes: Same as Inactive Narcan 2018 [facility] Hydromorphone Notes: Same as Inactive Dilaudid 2018 [facility] Dexamethasone Notes: Inactive Concentration: 2018 [facility] 4mg/ml [facility] Glycopyrrolate Notes: (Same as: Inactive Robinul) 2018 [facility] Meperidine Notes: (Same as: Inactive Demerol) "Use 2018 [facility] Precaution in [facility] Elderly, Seizure disorders, and Renal impairment" Ondansetron Notes: (Same as: Inactive Zofran) 2018 [facility] MEDICATION WASTE City Product Size: 4 mg Product Wasted: ___ mg Diphenhydramine Notes: (Same as: Inactive Benadryl) 2018 [facility] Albuterol 0.83 Notes: SEE RT Inactive MG/ML Inhalant DOCUMENTATION 2018 [facility] orial Solution (Same as: [facility] Proventil) Acetaminophen Notes: Max Inactive acetaminophen 2018 [facility] 4000 mg/day (4 City gm/day). (Same as: Tylenol Extra Strength) heparin Notes: porcine Inactive heparin 2018 [facility] ceFAZolin + Notes: (Same As: No Longer H sterile water 20 Ancef, Kefzol) Active 2018 [facility] mL MEDICATION City WASTE Product Size: 1000 mg Product Wasted: ___ mg Synthroid 300 microgram, Active PO, Daily, 0 2017 [facility] Refill(s) [facility] ferrous sulfate 325 mg = 1 tab, Active 325 mg oral PO, Daily, # 60 2016 Román rial enteric coated tab, 3 Refill(s) [facility] tablet 1/2NS + KCL Notes: PREMIX No Longer 20mEq/L 1000ml IV - Do Not Active 2016 [facility] (Premix) 1,000 mL Alter WASTE: [facility] F/P - Sink; E - [employer] Trash Bin heparin sodium, Notes: porcine No Longer porcine 2500 heparin Active [address] [place] [address] UNT/ML Injectable [facility] Solution Famotidine Notes: (Same as: No Longer Pepcid) Can be Active 2016 [facility] dilute in 5-10cc [facility] NS IVP: Slow IV push over at least 2 minutes. sugammadex (ANES) Route: IV, Drug Inactive 10/21 form: SOLN, 2016 [facility] ONCE, Stop date: [facility] 10/21/17 14:38:00 ASSISTANT CENTER DIRECTOR ketOROLAC (ANES) IV, ONCE Inactive [address] ondansetron Route: IV, Drug Inactive (ANES) form: INJ, ONCE, 2016 [facility] Stop date: [facility] 10/21/17 14:38:00 ASSISTANT CENTER DIRECTOR Morphine 2 mg, Route: Inactive IVP, Q5Min, 2016 [facility] Dosing Weight [facility] 113.636, kg, PRN Pain Score 4-6, Start date: 10/21/17 14:26:00 ASSISTANT CENTER DIRECTOR, Duration: 5 doses or times, Stop date: Limited # of times Flumazenil 0.2 mg, Route: Inactive IVP, PRN, Dosing 2016 Jeanieoria l Weight 113.636, City kg, PRN Benzodiazepine Reversal, Initial dose, Start date: 10/21/17 14:26:00 ASSISTANT CENTER DIRECTOR, Duration: 30 day, Stop date: 11/20/17 14:25:00 ASSISTANT CENTER DIRECTOR Naloxone 0.4 mg, Route: Inactive IVP, Q2MIN, 2016 [facility] Dosing Weight [facility] 113.636, kg, PRN Narcotic Reversal, Start date: 10/21/17 14:26:00 ASSISTANT CENTER DIRECTOR, Duration: 8 doses or times, Stop date: Limited # of times Hydromorphone 0.5 mg, Route: Inactive IVP, Q5Min, 2016 [facility] Dosing Weight [facility] 113.636, kg, PRN Pain Score 7-10, Start date: 10/21/17 14:26:00 ASSISTANT CENTER DIRECTOR, Duration: 4 doses or times, Stop date: Limited # of times Promethazine 6.25 mg, Route: Inactive IVPB, ONCE, 2016 [facility] Dosing Weight [facility] 113.636, kg, PRN Nausea & Vomiting, Start date: 10/21/17 14:26:00 ASSISTANT CENTER DIRECTOR Ondansetron 4 mg, Route: Inactive IVP, ONCE, 2016 [facility] Dosing Weight City 113.636, kg, PRN Nausea & Vomiting, Start date: 10/21/17 14:26:00 ASSISTANT CENTER DIRECTOR Calcium Chloride 1,000 mL, Rate: Inactive 0.0014 MEQ/ML / 125 ml/hr, 2016 [facility] Potassium Infuse over: 8 City Chloride 0.004 hr, Route: IV, MEQ/ML / Sodium Dosing Weight Chloride 0.103 113.636 kg, MEQ/ML / Sodium Total Volume: Lactate 0.028 1,000, Start MEQ/ML Injectable date: 10/21/17 Solution 14:26:00 ASSISTANT CENTER DIRECTOR, Duration: 30 day, Stop date: 11/20/17 14:25:00 ASSISTANT CENTER DIRECTOR, 2.35, m2 fentaNYL (ANES) Route: IV, Drug Inactive form: INJ, ONCE, 2016 [facility] Stop date: [facility] 10/21/17 13:50:00 ASSISTANT CENTER DIRECTOR ePHEDrine (ANES) Route: IV, Drug Inactive form: INJ, ONCE, 2016 [facility] Stop date: [facility] 10/21/17 12:44:00 ASSISTANT CENTER DIRECTOR dexamethasone Route: IV, Drug Inactive 10/21/ H (ANES) form: INJ, ONCE, 2016 [facility] Stop date: [facility] 10/21/17 12:24:00 ASSISTANT CENTER DIRECTOR famotidine (ANES) Route: IV, Drug Inactive 10/21 form: INJ, ONCE, 2016 [facility] Stop date: [facility] 10/21/17 12:24:00 ASSISTANT CENTER DIRECTOR scopolamine Route: Inactive (ANES) Transdermal, 2016 [facility] Drug form: City ERFILM, ONCE, Stop date: 10/21/17 12:24:00 ASSISTANT CENTER DIRECTOR midazolam (ANES) Route: IV, Drug Inactive form: SOLN, 2016 [facility] ONCE, Stop date: [facility] 10/21/17 12:19:00 ASSISTANT CENTER DIRECTOR fentaNYL (ANES) Route: IV, Drug Inactive form: INJ, ONCE, 2016 [facility] Stop date: [facility] 10/21/17 12:19:00 ASSISTANT CENTER DIRECTOR lidocaine (ANES) Route: IV, Drug Inactive form: INJ, ONCE, 2016 [facility] Stop date: [facility] 10/21/17 12:19:00 ASSISTANT CENTER DIRECTOR propofol (ANES) Route: IV, Drug Inactive form: INJ, ONCE, 2016 [facility] l Stop date: [facility] 10/21/17 12:19:00 ASSISTANT CENTER DIRECTOR rocuronium (ANES) Route: IV, Drug Inactive 10/21 form: INJ, ONCE, 2016 [facility] Stop date: [facility] 10/21/17 12:19:00 ASSISTANT CENTER DIRECTOR ceFAZolin (ANES) Route: IV, Drug Inactive form: INJ, ONCE, 2016 [facility] l Stop date: [facility] 10/21/17 12:19:00 ASSISTANT CENTER DIRECTOR acetaminophen Route: IV, Drug Inactive H (ANES) 10 mg form: INJ, Start 2016 Me morial date: 10/21/17 [facility] 12:00:00 ASSISTANT CENTER DIRECTOR, Stop date: 10/21/17 13:00:00 ASSISTANT CENTER DIRECTOR Lactated Ringers Route: IV, Total Inactive 10/21 Injection IV Volume: 1,000, 2016 Román rial (ANES) 1000 mL Start date: [facility] 10/21/17 11:30:00 ASSISTANT CENTER DIRECTOR, Stop date: 10/21/17 12:30:00 ASSISTANT CENTER DIRECTOR 1/2NS + KCL Notes: PREMIX No Longer 20mEq/L 1000ml IV - Do Not Active 2016 [facility] (Premix) 1,000 mL Alter WASTE: [facility] F/P - Sink; E - Municipal Trash Bin Saline Flush 0.9% Notes: (Same as: No Longer BD Posiflush) Active 2016 [facility] Morphine Notes: (Same No Longer as:MORPhine Active 2016 [facility] Sulfate) [facility] Demerol HCl Notes: (Same as: No Longer H Demerol) "Use Active 2016 [facility] Precaution in [facility] Elderly, Seizure disorders, and Renal impairment" tramadol Notes: Not to No Longer hydrochloride 50 exceed Active 2016 Memoria l MG Oral Tablet 400mg/day. (Same City As: [facility]) ketOROLAC 30 4 days No Longer mg/mL injectable MEDICATION WASTE Active 2016 [facility] solution Product City Size: 30 mg Product Wasted: ___ mg Ofirmev Notes: Infuse No Longer over 15 minutes Active [address] [place] [address] Do not exceed City 4gm/day of acetaminophen MEDICATION WASTE Product Size: 1000 mg Product Wasted: ___ mg enalaprilat Notes: (Same as: No Longer H Vasotec-IV) Active 2016 [facility] Metoprolol Notes: (Same as: No Longer Lopressor) Push Active 2016 [facility] over 2 minutes [facility] Promethazine Notes: Do not No Longer give IV push. Active 2016 [facility] (Same as: [facility] Phenergan) Ketorolac 30 mg, Route: Inactive IVP, PRN, [facility] 113.636, City kg, PRN Pain Score 1-5, PRN q 6 hrs, Start date: 10/21/17 11:09:00 ASSISTANT CENTER DIRECTOR, Duration: 6 doses or times, Stop date: Limited # of times Ondansetron Notes: (Same as: No Longer H Zofran) Active 2016 [facility] MEDICATION WASTE City Product Size: 4 mg Product Wasted: ___ mg heparin Notes: porcine Inactive heparin 2016 [facility] ceFAZolin + Notes: (Same As: Inactive sterile water 20 Ancef, Kefzol) 2016 [facility] mL MEDICATION City WASTE Product Size: 1000 mg Product Wasted: ___ mg levothyroxine 175 175 microgram = Active mcg (0.175 mg) 1 tab, PO, 2016 [facility]ori al oral tablet Daily, # 90 tab, Cit y 1 Refill(s) Allergies, Adverse Reactions, Alerts Substance Category Reaction Severity Reaction Status Date Comments S ource type Reported Toprol-XL Assertion Drug Active allergy [facility] Immunizations No Data Provided for This Section Results Order Name Results Value Reference Date Interpretation Comments Nory rce Range ELECTROLYTE AGAP 10.0 10.0 - 09/28 S 20.0 [facility] ELECTROLYTE eGFR 74 11/28 Result Comment: [facility] eGFR is City calculated using the CKD-EPI formula. In most young, healthy individuals the eGFR will be >90 mL/min/1.73m2. The eGFR declines with age. An eGFR of 60-89 may be normal in some populations, particularly the elderly, for whom the CKD-EPI formula has not been extensively validated. Use of the eGFR is not recommended in the following populations:<b r/>
Indivi duals with unstable creatinine concentrations , including patients and those with serious co-morbid conditions.

Patient s with extremes in muscle mass or diet.

The data above are obtained from the National Kidney Disease Education Program (NKDEP) which additionally recommends that when the eGFR is used in patients with extremes of body mass index for purposes of drug dosing, the eGFR should be multiplied by the estimated BMI. ELECTROLYTE Creatinine 0.92 0.50 - 09/28 S Lvl 1.40 [facility] ELECTROLYTE Glucose Lvl 97 70 - 99 09/28 S [facility] ELECTROLYTE BUN 12 7 - 22 09/28 [facility] ELECTROLYTE Potassium 4.0 3.5 - 5.1 09/28 S Lvl [facility] ELECTROLYTE Sodium Lvl 143 135 - 145 09/28 [facility] ELECTROLYTE Chloride Lvl 108 95 - 109 09/28 [facility] ELECTROLYTE CO2 29 24 - 32 09/28 [facility] ELECTROLYTE Calcium Lvl 8.6 8.5 - 10.5 09/28 [facility] HEMATOLOGY Platelet 190 133 - 450 09/28 [facility] HEMATOLOGY MPV 10.1 7.4 - 10.4 09/28 [facility] HEMATOLOGY RDW 13.3 11.5 - 09/28 MH 14. [facility] HEMATOLOGY MCV 88.9 80.0 - 09/28 98.0 [facility] HEMATOLOGY MCH 29.7 27.0 - 09/28 MH 31.0 [facility] HEMATOLOGY MCHC 33.4 32.0 - 09/28 MH 36.0 [facility] HEMATOLOGY Hgb 13.0 12.0 - 09/28 MH 16.0 [facility] HEMATOLOGY Hct 38.7 36.0 - 09/28 MH 48.0 [facility] HEMATOLOGY WBC 4.7 3.7 - 10.4 09/28 [facility] HEMATOLOGY RBC 4.36 4.20 - 09/28 MH 5.40 [facility] HEMATOLOGY Eosinophils 15.9 0.0 - 4.0 09/28 [facility] HEMATOLOGY Lymphocytes 26.5 20.0 - 09/28 MH 40.0 [facility] HEMATOLOGY Monocytes 7.7 2.0 - 12.0 09/28 [facility] HEMATOLOGY Segs 49.0 45.0 - 09/28 MH 75.0 [facility] HEMATOLOGY Basophils 0.9 0.0 - 1.0 09/28 [facility] HEMATOLOGY Neutrophils 2.3 1.5 - 8.1 09/28 [facility] Lymphocytes 1.2 1.0 - 5.5 09/28 [facility] Monocytes # 0.4 0.0 - 0.8 09/28 [facility] HEMATOLOGY Eosinophils 0.7 0.0 - 0.5 09/28 [facility] CHEM PANEL eGFR 59 10/23 Result Comment: [facility] eGFR is City calculated using the CKD-EPI formula. In most young, healthy individuals the eGFR will be >90 mL/min/1.73m2. The eGFR declines with age. An eGFR of 60-89 may be normal in some populations, particularly the elderly, for whom the CKD-EPI formula has not been extensively validated. Use of the eGFR is not recommended in the following populations:<b r/>
Indivi duals with unstable creatinine concentrations , including patients and those with serious co-morbid conditions.

Patient s with extremes in muscle mass or diet.

The data above are obtained from the National Kidney Disease Education Program (NKDEP) which additionally recommends that when the eGFR is used in patients with extremes of body mass index for purposes of drug dosing, the eGFR should be multiplied by the estimated BMI. CHEM PANEL Creatinine 1.12 0.50 - 10/23 MH Lvl 1.40 [facility] CHEM PANEL Calcium Lvl 8.0 8.5 - 10.5 10/23 [facility] CHEM PANEL CO2 28 24 - 32 10/23 [facility] CHEM PANEL Chloride Lvl 106 95 - 109 10/23 /2016 [facility] CHEM PANEL Sodium Lvl 142 135 - 145 10/23 /2016 [facility] CHEM PANEL Potassium 4.5 3.5 - 5.1 10/23 MH Lvl /2016 [facility] CHEM PANEL BUN 7 7 - 22 10/23 /2016 [facility] CHEM PANEL Glucose Lvl 87 70 - 99 10/23 /2016 [facility] CHEM PANEL AGAP 12.5 10.0 - 10/23 MH 20.0 [facility] HEMATOLOGY Basophils 1.0 0.0 - 1.0 10/23 /2016 [facility] HEMATOLOGY Lymphocytes 2.1 1.0 - 5.5 10/23 MH # /2016 [facility] HEMATOLOGY Eosinophils 1.1 0.0 - 4.0 10/23 /2016 [facility] HEMATOLOGY Segs-Bands # 3.9 1.5 - 8.1 10/23 [facility] HEMATOLOGY Eosinophils 0.1 0.0 - 0.5 10/23 MH # /2016 [facility] HEMATOLOGY Microcyte 2+ None Seen 10/23 MH *ABN* /2016 [facility] (10/23/17 6:15 AM) [facility] HEMATOLOGY Monocytes # 0.6 0.0 - 0.8 10/23 /2016 [facility] HEMATOLOGY Basophils # 0.1 0.0 - 0.2 10/23 /2016 [facility] HEMATOLOGY Lymphocytes 31.9 20.0 - 10/23 MH 40.0 [facility] HEMATOLOGY Segs 57.8 45.0 - 10/23 MH 75.0 [facility] HEMATOLOGY Plt Morph Normal 10/23 (10/23/17 6:15 AM) /2016 [facility] HEMATOLOGY Monocytes 8.2 2.0 - 12.0 10/23 /2016 [facility] HEMATOLOGY Hgb 8.6 12.0 - 10/23 MH 16.0 [facility] HEMATOLOGY Hct 26.8 36.0 - 10/23 MH 48.0 [facility] HEMATOLOGY MCH 23.4 27.0 - 10/23 MH 31.0 [facility] HEMATOLOGY MCV 72.7 80.0 - 10/23 MH 98.0 [facility] HEMATOLOGY MCHC 32.2 32.0 - 10/23 MH 36.0 [facility] HEMATOLOGY RBC 3.69 4.20 - 10/23 MH 5.40 /2016 [facility] HEMATOLOGY WBC 6.7 3.7 - 10.4 10/23 [facility] HEMATOLOGY MPV 9.9 7.4 - 10.4 10/23 [facility] HEMATOLOGY Platelet 264 133 - 450 10/23 [facility] HEMATOLOGY RDW 18.0 11.5 - 10/23 MH 14. [facility] ANEMIA TIBC 391 228 - 428 10/22 STUDY [facility] ANEMIA Iron 28 30 - 160 10/22 STUDY [facility] ANEMIA % [place] 7 12 - 57 10/22 STUDY [facility] ANEMIA UIBC 363 110 - 370 10/22 STUDY [facility] ANEMIA Ferritin Lvl 5 5 - 204 10/22 STUDY [facility] ELECTROLYTE AGAP 13.6 10.0 - 10/22 S 20.0 [facility] ELECTROLYTE eGFR 60 10/22 Comment: [facility] eGFR is City calculated using the CKD-EPI formula. In most young, healthy individuals the eGFR will be >90 mL/min/1.73m2. The eGFR declines with age. An eGFR of 60-89 may be normal in some populations, particularly the elderly, for whom the CKD-EPI formula has not been extensively validated. Use of the eGFR is not recommended in the following populations:<b r/>
Indivi duals with unstable creatinine concentrations , including patients and those with serious co-morbid conditions.

Patient s with extremes in muscle mass or diet.

The data above are obtained from the National Kidney Disease Education Program (NKDEP) which additionally recommends that when the eGFR is used in patients with extremes of body mass index for purposes of drug dosing, the eGFR should be multiplied by the estimated BMI. ELECTROLYTE BUN 9 7 - 22 10/22 S [facility] ELECTROLYTE Creatinine 1.10 0.50 - 10/22 S Lvl 1.40 /2017 [facility] ELECTROLYTE CO2 28 24 - 32 10/22 S [facility] ELECTROLYTE Glucose Lvl 121 70 - 99 10/22 S [facility] ELECTROLYTE Potassium 4.6 3.5 - 5.1 10/22 S Lvl /2016 [facility] ELECTROLYTE Chloride Lvl 102 95 - 109 10/22 S [facility] ELECTROLYTE Calcium Lvl 8.2 8.5 - 10.5 10/22 S /2016 [facility] ELECTROLYTE Sodium Lvl 139 135 - 145 10/22 S /2016 [facility] HEMATOLOGY Platelet 271 133 - 450 10/22 MH /2016 [facility] HEMATOLOGY RDW 17.9 11.5 - 10/22 MH 14.5 /2016 [facility] HEMATOLOGY MCV 71.6 80.0 - 10/22 MH 98.0 /2016 [facility] HEMATOLOGY MCHC 32.3 32.0 - 10/22 MH 36.0 /2016 [facility] HEMATOLOGY MPV 9.5 7.4 - 10.4 10/22 /2016 [facility] HEMATOLOGY Hct 27.3 36.0 - 10/22 MH 48.0 /2016 [facility] HEMATOLOGY Hgb 8.8 12.0 - 10/22 MH 16.0 [facility] MCH 23.1 27.0 - 10/22 MH 31.0 [facility] HEMATOLOGY WBC 9.6 3.7 - 10.4 10/22 /2016 [facility] HEMATOLOGY RBC 3.81 4.20 - 10/22 MH 5.40 [facility] HEMATOLOGY Microcyte 2+ None Seen 10/22 MH *ABN* /2016 [facility] (10/22/17 3:37 AM) [facility] HEMATOLOGY Lymphocytes 13.7 20.0 - 10/22 MH 40.0 [facility] HEMATOLOGY Monocytes 7.3 2.0 - 12.0 10/22 /2016 [facility] HEMATOLOGY Segs 78.6 45.0 - 10/22 MH 75.0 [facility] HEMATOLOGY Basophils 0.4 0.0 - 1.0 10/22 /2016 [facility] Segs-Bands # 7.5 1.5 - 8.1 10/22 /2016 [facility] HEMATOLOGY Lymphocytes 1.3 1.0 - 5.5 10/22 # /2017 [facility] HEMATOLOGY Monocytes # 0.7 0.0 - 0.8 10/22 /2016 [facility] BLOOD BANK ABO/Rh A POS 10/19 RESULTS /2016 [facility] BLOOD BANK Antibody Negative 10/19 RESULTS Scrn (10/19/17 11:22 AM) /2016 [facility] [place] CHEM PANEL eGFR 55 10/19 Result MH /2016 Comment: [facility] eGFR is City calculated using the CKD-EPI formula. In most young, healthy individuals the eGFR will be >90 mL/min/1.73m2. The eGFR declines with age. An eGFR of 60-89 may be normal in some populations, particularly the elderly, for whom the CKD-EPI formula has not been extensively validated. Use of the eGFR is not recommended in the following populations:<b r/>
Indivi duals with unstable creatinine concentrations , including patients and those with serious co-morbid conditions.

Patient s with extremes in muscle mass or diet.

The data above are obtained from the National Kidney Disease Education Program (NKDEP) which additionally recommends that when the eGFR is used in patients with extremes of body mass index for purposes of drug dosing, the eGFR should be multiplied by the estimated BMI. CHEM PANEL ALT 43 0 - 65 10/19 [facility] [employer] CHEM PANEL AST 29 0 - 37 10/19 [facility] [employer] CHEM PANEL Glucose Lvl 102 70 - 99 10/19 [facility] [employer] CHEM PANEL Creatinine 1.19 0.50 - 10/19 MH Lvl 1.40 [facility] [employer] CHEM PANEL Bili Total 1.4 0.2 - 1.3 10/19 [facility] CHEM PANEL Alk Phos 109 39 - 136 10/19 [facility] [employer] CHEM PANEL Total 8.2 6.4 - 8.4 10/19 [facility] [employer] CHEM PANEL Albumin Lvl 3.7 3.5 - 5.0 10/19 [facility] CHEM PANEL Calcium Lvl 8.9 8.5 - 10.5 10/19 [facility] [employer] CHEM PANEL CO2 29 24 - 32 10/19 [facility] [employer] CHEM PANEL Chloride Lvl 102 95 - 109 10/19 [facility] [employer] CHEM PANEL Potassium 3.7 3.5 - 5.1 10/19 MH Lvl [facility] [employer] CHEM PANEL Sodium Lvl 141 135 - 145 10/19 [facility] [employer] CHEM PANEL BUN 10 7 - 22 10/19 [facility] [employer] CHEM PANEL B/C Ratio 8 6 - 25 10/19 [facility] [employer] CHEM PANEL Globulin 4.5 2.7 - 4.2 10/19 [facility] [employer] CHEM PANEL A/G Ratio 0.8 0.7 - 1.6 10/19 [facility] [employer] CHEM PANEL AGAP 13.7 10.0 - 10/19 MH 20.0 /2016 [facility] CHEM PANEL VITAMIN B1 92.5 66.5 - 10/19 Result (THIAMINE) 200.0 /2017 Comment: [facility] WHOLE BLOOD
This test City was developed and its performance characteristic s
determin ed by [facility]. It has not been cleared or
approve d by the Food and Drug Administration .
Performe d At: [facility] [place]<br/ >[address], [place] [id number]<b r/>Mylene Ricardo MD Ph:[phone] HEMATOLOGY Lymphocytes 28.5 20.0 - 10/19 MH 40.0 /2016 [facility] HEMATOLOGY Monocytes 8.8 2.0 - 12.0 10/19 /2016 [facility] HEMATOLOGY Monocytes # 0.5 0.0 - 0.8 10/19 /2016 [facility] HEMATOLOGY Eosinophils 0.5 0.0 - 0.5 10/19 MH # /2017 [facility] HEMATOLOGY Basophils # 0.1 0.0 - 0.2 10/19 /2016 [facility] HEMATOLOGY Segs 52.3 45.0 - 10/19 MH 75.0 [facility] HEMATOLOGY Eosinophils 9.3 0.0 - 4.0 10/19 MH /2016 [facility] HEMATOLOGY Lymphocytes 1.6 1.0 - 5.5 10/19 MH # /2017 [facility] HEMATOLOGY Basophils 1.1 0.0 - 1.0 10/19 /2016 [facility] HEMATOLOGY Segs-Bands # 2.9 1.5 - 8.1 10/19 /2016 [facility] HEMATOLOGY Microcyte 2+ None Seen 10/19 MH *ABN* /2016 [facility] (10/19/17 11:22 AM) [facility] HEMATOLOGY RBC 4.83 4.20 - 10/19 MH 5.40 /2017 [facility] HEMATOLOGY WBC 5.5 3.7 - 10.4 10/19 /2016 [facility] HEMATOLOGY Hgb 11.2 12.0 - 10/19 MH 16.0 [facility] HEMATOLOGY MCV 72.0 80.0 - 10/19 MH 98.0 [facility] HEMATOLOGY Hct 34.8 36.0 - 10/19 MH 48.0 [facility] HEMATOLOGY MPV 9.3 7.4 - 10.4 10/19 /2016 [facility] HEMATOLOGY MCH 23.2 27.0 - 10/19 MH 31.0 [facility] HEMATOLOGY RDW 18.5 11.5 - 10/19 14.5 /2017 [facility] HEMATOLOGY MCHC 32.1 32.0 - 10/19 36.0 /2017 [facility] HEMATOLOGY Platelet 311 133 - 450 10/19 [facility] Pathology Reports No Data Provided for This Section Diagnostic Reports Report Value Date Source Chest 2 views DX Exam: Chest X-ray 2 views : 10/19/2017 [facility] CLINICAL HISTORY: Dizziness - Dizziness. Comparison: None. Findings: PA and lateral views of the chest are obtained. The heart size is normal. Th e hilar and mediastinal structures are normal. The lungs are clear without consolidation or effusion. No acute bony abnormality. Pulmonary vascularity is normal. Impression: No active disease . Consultation Notes No Data Provided for This Section Discharge Summaries No Data Provided for This Section History and Physicals No Data Provided for This Section Vital Signs Vital Sign Value Date Comments Source Weight 74.091 01/20/2019 [facility] y Height 170.18 cm 01/20/2019 [facility] y BMI Calculated 25.58 01/20/2019 [facility] Respitory Rate 13 10/04/2018 [facility] Systolic (mm Hg) 120 10/04/2018 [facility] [place] Diastolic (mm Hg) 65 10/04/2018 [facility] Systolic (mm Hg) 122 10/04/2018 [facility] [place] Diastolic (mm Hg) 71 10/04/2018 [facility] Respitory Rate 14 10/04/2018 [facility] Systolic (mm Hg) 114 10/04/2018 [facility] Diastolic (mm Hg) 61 [facility]04[facility] Respitory Rate 8 10/04/2018 [facility] Heart Rate 86 10/04/2018 [facility] y Height 172.72 cm 09/28/2018 [facility] y BMI Calculated 27.65 09/28/2018 [facility] Weight 82.472 09/28/2018 [facility] y Systolic (mm Hg) 109 10/23/2017 [facility] Diastolic (mm Hg) 74 10/23/[facility] Respitory Rate 18 10/23/2017 [facility] Heart Rate 68 10/23/2017 [facility] y Temperature Oral (F) 98.0 F 10/23/2017 [facility] Heart Rate 80 10/23/2017 [facility] y Temperature Oral (F) 98.2 F 10/23/2017 [facility] Respitory Rate 18 10/23/2017 Lisa gardiner Systolic (mm Hg) 110 10/23/2017 [facility] Diastolic (mm Hg) 68 10/23/2017 [facility] Heart Rate 56 10/23/2017 [facility] y Systolic (mm Hg) 124 10/23/2017 [facility] Diastolic (mm Hg) 75 10/23/2017 [facility] Respitory Rate 18 10/23/2017 [facility] Felix gardiner Temperature Oral (F) 98.5 F 10/23/2017 [facility] BMI Calculated 39.24 10/19/2017 [facility] Felix gardiner Weight 113.636 10/19/2017 [facility] compa Height 170.18 cm 10/19/2017 [facility] y Encounters Location Location Encounter Encounter Reason Attending ADM [place] Stat us Source Details Type Number For Provider Date Date Visit [facility] [id number] [place] 10/21 10/23 [facility] /2016 [facility] [id number] [place] 10/04 10/04 [facility] /2017 [facility] [id number] [place] 01/20 01/20 [facility]Note 3[facility] /2018 [facility] Procedures Procedure Code Date Perfomer Comments Source Duodenal switch [id number] 10/21/2017 [facility] Bariatric operative [id number] Gastric Band [facility] procedure<sup>1</hayes [place] p> [id number] X 2 [facility] section<sup>2</sup> [facility] Miscellaneous [id number] [facility]<sup[facility]s Lap. Band. City up> Assessment and Plan No Data Provided for This Section Plan of Care No Data Provided for This Section Social History Social History Date Source Social History TypeResponse 09/28/2018 [facility] Alcohol Never Smoking Status Never smoker; Exposure to Tobacco Smoke None; Cigarette Smoking Last 365 Days No; Reg Smoking Cessation Counseling No entered on: 09/28/18 Family History No Data Provided for This Section Advance Directives No Data Provided for This Section Functional Status No Data Provided for This Section
--- OUTSIDE RECORDS SUMMARY | 2020-06-11 12:43 | XMS REPORT | Continuity of Care Document ---
:1970 Author Organization [facility] t Address [address] [place] [address] Care Team Providers Name Role Phone Jairon Attending Clinician Jairon Admitting Clinician Problems Condition Condition Condition Status Onset Resolution Last Treating Co mments Source Name Details Category Date Date Treatment Clinician Date DECREASED Diagnosis Active 2020-06-07 Memoria WBC 8- 17:17:00 l 00:00: Julio Cesar DECREASED 00 WBC Active 06/06/2020 [facility] [place] UNKNOWN Diagnosis Active 2019-01-20 Me moria 3- 10:36:00 l UNKNOWN 00:00: Julio Cesar 00 Active 01/20/2019 [facility] ACID Diagnosis Active 2019-01-20 Mem oria REFLUX - 11:11:00 l ACID 00:00: Julio Cesar REFLUX 00 Active 01/20/2019 [facility] [id number], Diagnosis Active 2017-112019-01-20 Mem oria ABDOMINAL 1- 10:34:00 l PAIN, 80111, 00:00: [place] CHOLECYSTI ABDOMINAL 00 TIS PAIN, CHOLECYSTI TIS Active 09/27/2018 [facility] [id number] Diagnosis Active 2016-112017-10-26 Memoria 4,T85.518A 2-12 16:18:00 l ,BREAKDOWN 00:00: Fady n (PROJECT GEOLOGIST [id number] 00 4,T85.518A ,BREAKDOWN (PROJECT GEOLOGIST Active 10/12/2017 [facility] Hypothyroi Problem 2019-04-23 M emoria dism, 12:57:46 l unspecifie Fady n d Hypothyroi dism, unspecifie d 04/23/2019 [facility] Cholecysti Problem Active 2019-04-23 M emoria tis 12:57:46 l (disorder) Fady n Cholecysti tis (disorder) Active Problem 04/23/2019 [facility] History of Problem Active 2019-04-23 M emoria - 12:57:46 l hypothyroi History Her rowe dism of - (context-d hypothyroi ependent dism category) (context-d ependent category) Active Problem 04/23/2019 [facility] Morbid Problem Active 2019-04-23 Memor ia obesity 12:57:46 l (disorder) Morbid Herm michael obesity (disorder) Active Problem 04/23/2019 [facility] Motion Problem Active 2019-04-23 Memor ia sickness 12:57:46 l (disorder) Motion Herm michael sickness (disorder) Active Problem 04/23/2019 [facility] BREAKDOWN Diagnosis Active 2017-10-26 Memoria (MECHANICA 16:18:00 l L) OF GI [place] PROSTH BREAKDOWN DEV/ (MECHANICA L) OF GI PROSTH DEV/ Active [facility] Calculus Problem 2017-112019-04-23 2019-04-23 Memoria of 2-11 12:57:46 12:57:46 l gallbladde Calculus 05:08: He rmann r with of 19 chronic gallbladde cholecysti r with tis chronic without cholecysti obstructio tis n without obstructio n 10/11/2018 04/23/2019 [facility] Allergies, Adverse Reactions, Alerts Allergy Allergy Status Severity Reaction(s) Onset Inactive Treating Comm ents Source Name Type Date Date Clinician Toprol-X Toprol-X Active Alaina Harrell Social History Social Habit Start Date Stop Date Quantity Comments Source Social History 2018-09-28 2018-09-28 [facility] ermann 21:44:17 21:44:17 Medications Ordered Filled Start Stop Current Ordering Indication Dosage Frequency Signature Comments Components Source Medication Medication Date Date Medication? Clinician (SIG) Name Name Vitamin A 2019- Yes 2400, PO, Mem oria 3-22 Daily, 0 l 16:03: Refill(s) Julio Cesar 00 Vitamin D3 2018- Yes 10,000 Memor ia 10,000 intl 01-20 IntlUnit = l units oral 16:03: 1 cap, PO, H ermann capsule 00 0 Refill(s) Multiicompl Yes Multiicomp Memoria ete 3-22 lete, PO, l 16:03: Daily, Refill(s) 0 Robinul 2017-11 No 0.2 mg, Memoria 2 Route: IV, l 15:36: ONCE, Dosing Weight 82.472, kg, Start date: 10/04/18 9:36:00 INTER COM SERVICER, Stop date: 10/04/18 9:36:00 INTER COM SERVICER enalapril 2017-11 No 1.25 mg, Román chichi 2 Route: l 14:42: IVP, Q6H, Dosing Weight 82.472, kg, PRN Hypertensi on, Start date: 10/04/18 8:42:00 INTER COM SERVICER, Duration: 30 day, Stop date: 11/03/18 8:41:00 INTER COM SERVICER Acetaminoph 2017-11 No 15 mL, Román chichi en 21.7 12-05 Route: PO, l MG/ML / 14:42: Dosing Hydrocodone 00 Weight Bitartrate 82.472, 0.67 MG/ML kg, Q4H, Oral PRN Pain Solution Score 4-6, Start date: 10/04/18 8:42:00 INTER COM SERVICER, Duration: 30 day, Stop date: 11/03/18 8:41:00 INTER COM SERVICER Promethazin 2017-11 No 12.5 mg, Me moria e 12-05 Route: IM, l 14:42: Q4H, Dosing Weight 82.472, kg, PRN Nausea & Vomiting, Start date: 10/04/18 8:42:00 INTER COM SERVICER, Duration: 30 day, Stop date: 11/03/18 8:41:00 INTER COM SERVICER Acetaminoph 2017-11 No 100.4 F, M emoria en 2- Start l 14:42: date: Julio Cesar 10/04/18 8:42:00 INTER COM SERVICER, Duration: 30 day, Stop date: 11/03/18 8:41:00 INTER COM SERVICER Calcium 2017-11 No 1,000 mL, Memor ia Chloride 12-05 Rate: 125 l 0.0014 14:42: ml/hr, Plummer MEQ/ML / 00 Infuse Potassium over: 8 Chloride hr, Route: 0.004 IV, Dosing MEQ/ML / Weight Sodium 82.472 kg, Chloride Total 0.103 Volume: MEQ/ML / 1,000, Sodium Start Lactate date: 0.028 10/04/18 MEQ/ML 8:42:00 Injectable INTER COM SERVICER, Solution Duration: 30 day, Stop date: 11/03/18 8:41:00 INTER COM SERVICER, 2.01, m2 neostigmine 2017-11 No Route: IV, Memoria (ANES) 2 Drug form: l 14:32: INJ, ONCE, Stop date: 10/04/18 8:32:00 INTER COM SERVICER glycopyrrol 2017-11 No Route: IV, Memoria ate (ANES) 12-05 Drug form: l 14:32: INJ, ONCE, Stop date: 10/04/18 8:32:00 INTER COM SERVICER ketOROLAC 2017-11 No IV, ONCE Román chichi (ANES) 12-05 l 14:32: ondansetron 2017-11 No Route: IV, Memoria (ANES) 2 Drug form: l 14:32: INJ, ONCE, Stop date: 10/04/18 8:32:00 INTER COM SERVICER propofol 2017-11 No Route: IV, Mem oria (ANES) 12-05 Drug form: l 14:32: INJ, ONCE, Stop date: 10/04/18 8:32:00 INTER COM SERVICER rocuronium 2017-11 No Route: IV, M emoria (ANES) 2- Drug form: l 14:22: INJ, ONCE, Stop date: 10/04/18 8:22:00 INTER COM SERVICER lidocaine 2017-11 No Route: IV, Me moria (ANES) 2- Drug form: l 14:22: INJ, ONCE, Stop date: 10/04/18 8:22:00 INTER COM SERVICER dexamethaso 2017-11 No Route: IV, Memoria ne (ANES) 2- Drug form: l 14:22: INJ, ONCE, Stop date: 10/04/18 8:22:00 INTER COM SERVICER fentaNYL 2017-11 No Route: IV, Mem oria (ANES) 2- Drug form: l 14:22: INJ, ONCE, Stop date: 10/04/18 8:22:00 INTER COM SERVICER ceFAZolin 2017-11 No Route: IV, Me moria (ANES) 2-04 Drug form: l 14:17: INJ, ONCE, [place] 00 Stop date: 10/04/18 8:17:00 INTER COM SERVICER midazolam 2017-11 No Route: IV, Me moria (ANES) 2-04 Drug form: l 14:07: SOLN, [place] 00 ONCE, Stop date: 10/04/18 8:07:00 INTER COM SERVICER acetaminoph 2017-11 No Route: IV, Memoria en (ANES) 2- Drug form: l 10 mg 13:51: INJ, Start Fady n 00 date: 10/04/18 7:51:00 INTER COM SERVICER, Stop date: 10/04/18 8:51:00 INTER COM SERVICER Lactated 2017-11 No Route: IV, Mem oria Ringers 2-04 Total l Injection 13:34: Volume: Macy nn IV (ANES) 00 1,000, 1000 mL Start date: 10/04/18 7:34:00 INTER COM SERVICER, Stop date: 10/04/18 8:34:00 INTER COM SERVICER Promethazin 2017-11 No Notes: Do M emoria e 2-04 not give l 13:29: IV push. Julio Cesar (Same as: Phenergan) Morphine 2017-11 No Notes: Memoria 2-04 (Same l 13:29: as:MORPhin e Sulfate) Ephedrine 2017-11 No Notes: Memori a 2-04 final l 13:29: concentrat ion 5 mg/mL Atropine 2017-11 No Notes: Mem oria 2-04 MEDICATION l 13:29: WASTE Julio Cesar 00 Product Size: 0.4 mg Product Wasted: ___ mg Flumazenil 2017-11 No Notes: Memor ia 2-04 (Same as: l 13:29: Romazicon) Naloxone 2017-11 No Notes: Memoria 2-04 Same as l 13:29: Narcan Hydromorpho 2017-11 No Notes: Román chichi ne 2-04 Same as l 13:29: Dilaudid Dexamethaso 2017-11 No Notes: Román chichi ne 2-04 Concentrat l 13:29: ion: [place] 00 4mg/ml Glycopyrrol 2017-11 No Notes: Román chichi ate 2-04 (Same as: l 13:29: Robinul) [place] 00 Meperidine 2017-11 No Notes: Memor ia 2-04 (Same as: l 13:29: Demerol) Julio Cesar "Use Precaution in Elderly, Seizure disorders, and Renal impairment " Ondansetron 2017-11 No Notes: Román chichi 2-04 (Same as: l 13:29: Zofran) Julio Cesar MEDICATION WASTE Product Size: 4 mg Product Wasted: ___ mg Diphenhydra 2017-11 No Notes: Román chichi mine 2-04 (Same as: l 13:29: Benadryl) Julio Cesar Albuterol 2017-11 No Notes: SEE Me moria 0.83 MG/ML 2-04 RT l Inhalant 13:29: DOCUMENTAT Her rowe Solution 00 ION (Same as: Proventil) Acetaminoph 2017-11 No Notes: Max Memoria en 2-04 acetaminop l 13:29: hen 4000 Julio Cesar 00 mg/day (4 gm/day). (Same as: Tylenol Extra Strength) heparin 2017-11 No Notes: Memoria 2-04 porcine l 12:00: heparin Julio Cesar 00 ceFAZolin + 2017-11 No Notes: Román chichi sterile 2-04 (Same As: l water 20 mL 05:00: AncNacho musa michael 00 Kefzol) MEDICATION WASTE Product Size: 1000 mg Product Wasted: ___ mg Synthroid 2017-11 Yes 300 Memoria 1-28 microgram, l 22:03: PO, Daily, [place] 00 0 Refill(s) ferrous 2016-11 Yes 325 mg = 1 Román chichi sulfate 325 2-22 tab, PO, l mg oral 14:09: Daily, # Fady n enteric 00 60 tab, 3 coated Refill(s) tablet 1/2NS + KCL 2016-11 No Notes: Román chichi 20mEq/L 2-22 PREMIX IV l 1000ml 12:00: - Do Not [place]ummer (Premix) 00 Alter 1,000 mL WASTE: F/P - Sink; E - Municipal Trash Bin heparin 2016-11 No Notes: Memoria sodium, 2-22 porcine l porcine 09:00: heparin [place] 2500 UNT/ML 00 Injectable Solution Famotidine 2016-11 No Notes: Memor ia - (Same as: l 03:00: Pepcid) [place] 00 Can be dilute in 5-10cc NS IVP: Slow IV push over at least 2 minutes. sugammadex 2016-11 No Route: IV, M emoria (ANES) 12-22 Drug form: l 20:38: SOLN, [place] 00 ONCE, Stop date: 10/21/17 14:38:00 INTER COM SERVICER ketOROLAC 2016-11 No IV, ONCE Román chichi (ANES) 12-22 l 20:38: Julio Cesar 00 ondansetron 2016-11 No Route: IV, Memoria (ANES) 12-22 Drug form: l 20:38: INJ, ONCE, Julio Cesar 00 Stop date: 10/21/17 14:38:00 INTER COM SERVICER Morphine 2016-11 No 2 mg, Memoria 12-22 Route: l 20:26: IVP, [place] 00 Q5Min, Dosing Weight 113.636, kg, PRN Pain Score 4-6, Start date: 10/21/17 14:26:00 INTER COM SERVICER, Duration: 5 doses or times, Stop date: Limited # of times Flumazenil 2016-11 No 0.2 mg, Román chichi 12-22 Route: l 20:26: IVP, PRN, Julio Cesar 00 Dosing Weight 113.636, kg, PRN Benzodiaze pine Reversal, Initial dose, Start date: 10/21/17 14:26:00 INTER COM SERVICER, Duration: 30 day, Stop date: 11/20/17 14:25:00 INTER COM SERVICER Naloxone 2016-11 No 0.4 mg, Memori a 12-22 Route: l 20:26: IVP, [place] 00 Q2MIN, Dosing Weight 113.636, kg, PRN Narcotic Reversal, Start date: 10/21/17 14:26:00 INTER COM SERVICER, Duration: 8 doses or times, Stop date: Limited # of times Hydromorpho 2016-11 No 0.5 mg, Mem oria ne 12-22 Route: l 20:26: IVP, Julio Cesar 00 Q5Min, Dosing Weight 113.636, kg, PRN Pain Score 7-10, Start date: 10/21/17 14:26:00 INTER COM SERVICER, Duration: 4 doses or times, Stop date: Limited # of times Promethazin 2016-11 No 6.25 mg, Me moria e 12-22 Route: l 20:26: IVPB, Julio Cesar 00 ONCE, Dosing Weight 113.636, kg, PRN Nausea & Vomiting, Start date: 10/21/17 14:26:00 INTER COM SERVICER Ondansetron 2016-11 No 4 mg, Memor ia 12-22 Route: l 20:26: IVP, ONCE, Dosing Weight 113.636, kg, PRN Nausea & Vomiting, Start date: 10/21/17 14:26:00 INTER COM SERVICER Calcium 2016-11 No 1,000 mL, Memor ia Chloride 12-22 Rate: 125 l 0.0014 20:26: ml/hr, MEQ/ML / 00 Infuse Potassium over: 8 Chloride hr, Route: 0.004 IV, Dosing MEQ/ML / Weight Sodium 113.636 Chloride kg, Total 0.103 Volume: MEQ/ML / 1,000, Sodium Start Lactate date: 0.028 10/21/17 MEQ/ML 14:26:00 Injectable INTER COM SERVICER, Solution Duration: 30 day, Stop date: 11/20/17 14:25:00 INTER COM SERVICER, 2.35, m2 fentaNYL 2016-11 No Route: IV, Mem oria (ANES) 12-22 Drug form: l 19:50: INJ, ONCE, Stop date: 10/21/17 13:50:00 INTER COM SERVICER ePHEDrine 2016-11 No Route: IV, Me moria (ANES) 12-22 Drug form: l 18:44: INJ, ONCE, Stop date: 10/21/17 12:44:00 INTER COM SERVICER dexamethaso 2016-11 No Route: IV, Memoria ne (ANES) 12-22 Drug form: l 18:24: INJ, ONCE, Stop date: 10/21/17 12:24:00 INTER COM SERVICER famotidine 2016-11 No Route: IV, M emoria (ANES) 12-22 Drug form: l 18:24: INJ, ONCE, Stop date: 10/21/17 12:24:00 INTER COM SERVICER scopolamine 2016-11 No Route: Román chichi (ANES) 12-22 Transderma l 18:24: l, Drug form: ERFILM, ONCE, Stop date: 10/21/17 12:24:00 INTER COM SERVICER midazolam 2016-11 No Route: IV, Me moria (ANES) 2- Drug form: l 18:19: SOLN, Julio Cesar 00 ONCE, Stop date: 10/21/17 12:19:00 INTER COM SERVICER fentaNYL 2016-11 No Route: IV, Mem oria (ANES) - Drug form: l 18:19: INJ, ONCE, Julio Cesar Stop date: 10/21/17 12:19:00 INTER COM SERVICER lidocaine 2016-11 No Route: IV, Me moria (ANES) - Drug form: l 18:19: INJ, ONCE, [place] 00 Stop date: 10/21/17 12:19:00 INTER COM SERVICER propofol 2016-11 No Route: IV, Mem oria (ANES) 12-22 Drug form: l 18:19: INJ, ONCE, Julio Cesar 00 Stop date: 10/21/17 12:19:00 INTER COM SERVICER rocuronium 2016-11 No Route: IV, M emoria (ANES) 12-22 Drug form: l 18:19: INJ, ONCE, [place] 00 Stop date: 10/21/17 12:19:00 INTER COM SERVICER ceFAZolin 2016-11 No Route: IV, Me moria (ANES) - Drug form: l 18:19: INJ, ONCE, [place] 00 Stop date: 10/21/17 12:19:00 INTER COM SERVICER acetaminoph 2016-11 No Route: IV, Memoria en (ANES) 12-22 Drug form: l 10 mg 18:00: INJ, Start Fady n date: 10/21/17 12:00:00 INTER COM SERVICER, Stop date: 10/21/17 13:00:00 INTER COM SERVICER Lactated 2016-11 No Route: IV, Mem oria Ringers - Total l Injection 17:30: Volume: Macy nn IV (ANES) 00 1,000, 1000 mL Start date: 10/21/17 11:30:00 INTER COM SERVICER, Stop date: 10/21/17 12:30:00 INTER COM SERVICER 1/2NS + KCL 2016-11 No Notes: Román chichi 20mEq/L 2-21 PREMIX IV l 1000ml 17:09: - Do Not Julio Cesar (Premix) 00 Alter 1,000 mL WASTE: F/P - Sink; E - Municipal Trash Bin Saline 2016-11 No Notes: Memoria Flush 0.9% - (Same as: l 17:09: BD Julio Cesar 00 Posiflush) Morphine 2016-11 No Notes: Memoria 2-21 (Same l 17:09: as:MORPhin [place] 00 e Sulfate) Demerol HCl 2016-11 No Notes: Román chichi -21 (Same as: l 17:09: Demerol) Julio Cesar 00 "Use Precaution in Elderly, Seizure disorders, and Renal impairment " tramadol 2016-11 No Notes: Not Mem oria hydrochlori 12-22 to exceed l de 50 MG 17:09: 400mg/day. Her rowe Oral Tablet 00 (Same As: Ultram) ketOROLAC 2016-11 No 4 days Memor ia 30 mg/mL 12-22 l injectable 17:09: MEDICATION H ermann solution 00 WASTE Product Size: 30 mg Product Wasted: ___ mg Ofirmev 2016-11 No Notes: Memoria - Infuse l 17:09: over 15 [place] 00 minutes Do not exceed 4gm/day of acetaminop hen MEDICATION WASTE Product Size: 1000 mg Product Wasted: ___ mg enalaprilat 2016-11 No Notes: Román chichi - (Same as: l 17:09: Vasotec-IV ) Metoprolol 2016-11 No Notes: Memor ia - (Same as: l 17:09: Lopressor) [place] 00 Push over 2 minutes Promethazin 2016-11 No Notes: Do M emoria e - not give l 17:09: IV push. [place] (Same as: Phenergan) Ketorolac 2016-11 No 30 mg, Memori a - Route: l 17:09: IVP, PRN, [place] 00 Dosing Weight 113.636, kg, PRN Pain Score 1-5, PRN q 6 hrs, Start date: 10/21/17 11:09:00 INTER COM SERVICER, Duration: 6 doses or times, Stop date: Limited # of times Ondansetron 2016-11 No Notes: Román chichi 2-21 (Same as: l 17:09: Zofran) [place] 00 MEDICATION WASTE Product Size: 4 mg Product Wasted: ___ mg heparin 2016-11 No Notes: Memoria 2-21 porcine l 09:00: heparin Julio Cesar 00 ceFAZolin + 2016-11 No Notes: Román chichi sterile 2-21 (Same As: l water 20 mL 09:00: Ancef, Herm michael 00 Kefzol) MEDICATION WASTE Product Size: 1000 mg Product Wasted: ___ mg levothyroxi 2016-11 Yes 175 Memori a ne 175 mcg 2-19 microgram l (0.175 mg) 22:02: = 1 tab, Her rowe oral tablet 00 PO, Daily, # 90 tab, 1 Refill(s) Vital Signs Vital Name Observation Time Observation Value Comments Source Weight 2019-01-20 16:01:00 [facility] Height 2019-01-20 16:01:00 170.18 cm [facility] BMI Calculated 2019-01-20 16:01:00 Memori al [place] Respitory Rate 2018-10-04 16:15:00 Memori al [place] Systolic (mm Hg) 2018-10-04 16:15:00 Román rial [place] Diastolic (mm Hg) 2018-10-04 16:15:00 Mem orial [place] Systolic (mm Hg) 2018-10-04 15:45:00 Román rial [place] Diastolic (mm Hg) 2018-10-04 15:45:00 Mem orial Julio Cesar Respitory Rate 2018-10-04 15:45:00 Memori al Julio Cesar Systolic (mm Hg) 2018-10-04 15:30:00 Román rial Julio Cesar Diastolic (mm Hg) 2018-10-04 15:30:00 Mem orial Julio Cesar Respitory Rate 2018-10-04 15:30:00 Memori al Julio Cesar Heart Rate 2018-10-04 12:38:00 [facility] Height 2018-09-28 21:37:[address] [facility] BMI Calculated 2018-09-28 21:37:00 Memori al Julio Cesar Weight 2018-09-28 21:37:00 [facility] Julio Cesar Systolic (mm Hg) 2017-10-23 13:45:00 Román rial [place] Diastolic (mm Hg) 2017-10-23 13:45:00 Mem orial Julio Cesar Respitory Rate 2017-10-23 13:45:00 Memori al [place] Heart Rate 2017-10-23 13:45:00 [facility] Julio Cesar Temperature Oral (F) 2017-10-23 13:45:00 98.0 F [facility] [place] Heart Rate 2017-10-23 10:30:00 [facility] [place] Temperature Oral (F) 2017-10-23 10:30:00 98.2 F [facility] Julio Cesar Respitory Rate 2017-10-23 10:30:00 Memori al Julio Cesar Systolic (mm Hg) 2017-10-23 10:30:00 Román rial [place] Diastolic (mm Hg) 2017-10-23 10:30:00 Mem orial Julio Cesar Heart Rate 2017-10-23 05:00:00 [facility] [place] Systolic (mm Hg) 2017-10-23 05:00:00 Román rial Julio Cesar Diastolic (mm Hg) 2017-10-23 05:00:00 Mem orial Julio Cesar Respitory Rate 2017-10-23 05:00:00 Memori al [place] Temperature Oral (F) 2017-10-23 05:00:00 98.5 F [facility] Julio Cesar BMI Calculated 2017-10-19 16:36:00 Memori al Julio Cesar Weight 2017-10-19 16:36:00 [facility] Julio Cesar Height 2017-10-19 16:36:00 170.18 cm [facility] [place] Procedures Procedure Date / Time Performed Performing Clinician Kelly pond Duodenal switch 2017-10-21 06:00:00 [facility] rowe Bariatric operative [facility] Her rowe procedure<sup>1</sup> [facility] [place] section<sup>2</sup> Miscellaneous [facility] [place] operations<sup>3</sup> Encounters Start End Encounter Admission Attending Care Care Encounter Source Date/Time Date/Time Type Type Clinicians Facility Department ID 2020-06-07 Outpatient [facility] MED [id number] 17:33:03 2019-01-20 2019-01-20 [id number] 10:34:00 14:05:00 [place] 81 2018-10-04 2018-10-04 [facility] [id number] 05:34:00 10:45:00 [place] 01 2017-10-21 2017-10-23 [facility] [id number] 06:00:00 11:31:00 [place] 00 Results Test Description Test Time Test Comments Results Result Comments Source ELECTROLYTES 2018-09-28 10.0 [facility] Her rowe 22:30:00 ELECTROLYTES 2018-09-28 74 [facility] Her rowe 22:30:00 ELECTROLYTES 2018-09-28 0.92 [facility] Her rowe 22:30:00 ELECTROLYTES 2018-09-28 97 [facility] Her rowe 22:30:00 ELECTROLYTES 2018-09-28 12 [facility] Her rowe 22:30:00 ELECTROLYTES 2018-09-28 4.0 [facility] Her rowe 22:30:00 ELECTROLYTES 2018-09-28 143 [facility] Her rowe 22:30:00 ELECTROLYTES 2018-09-28 108 [facility] Her rowe 22:30:00 ELECTROLYTES 2018-09-28 29 [facility] Her rowe 22:30:00 ELECTROLYTES 2018-09-28 8.6 [facility] Her rowe 22:30:00 HEMATOLOGY 2018-09-28 190 [facility] Macy nn 22:30:00 HEMATOLOGY 2018-09-28 10.1 [facility] Macy nn 22:30:00 HEMATOLOGY 2018-09-28 13.3 [facility] Macy nn 22:30:00 HEMATOLOGY 2018-09-28 88.9 [facility] Macy nn 22:30:00 HEMATOLOGY 2018-09-28 22:30:00 Test Item Value Reference Range Interpretation Comme nts MCH (test code = MCH) 29.7 pg 27.0-31.0 [facility] EibcgrrZQFEQJUGFM3869-33-48 22:30:0033.4[facility] HermannHEMATOLOGY 2018-09-28 22:30:0013.0[facility] GjpvocgLYONVOCQFV7048-13-19 22:30:0038.7[facility] FhqfnigJHQJFHNOHD3065-51-02 22:30:004.7[facility] HtuidbrBVUYHCDSCN2268-72-35 22:30:004.36[facility] KqjkkfoDBAJYMZHKM8074-57-26 22:30:0015.9[facility] [place] YNLGAMJRJO5568-29-09 22:30:0026.5[facility] QwexreuQXEIAWKXHX7953-82-66 22:30:00 7.7[facility] WckoejgBOIKEJJBQZ3870-28-00 22:30:0049.0[facility] HermannHEMATOLOGY 2018-09-28 22:30:000.9[facility] XbvxqjpJTXPRRLBIT7786-07-98 22:30:002.3[facility] VdyvrizTMVGGYTTCT8252-35-52 22:30:001.2[facility] AemyydcTBKGUQVTRY3772-42-57 22:30:000.4[facility] UqiwliqJDWRTLEGNX3166-73-01 22:30:000.7[facility] HermannCHEM XDUKD6941-26-42 12:15:0059[facility] HermannCHEM MFHAR9430-17-26 12:15:001.12 [facility] HermannCHEM BGPTM8024-51-94 12:15:008.0[facility] HermannCHEM PANEL 2017-10-23 12:15:0028[facility] HermannCHEM TTLDK7715-41-09 12:15:47950Vvomhpdo HermannCHEM TPHNP3083-72-14 12:15:31117Krzhrynj HermannCHEM YFQEU5778-89-41 12:15:004.5[facility] HermannCHEM FLWPM8421-58-17 12:15:007[facility] HermannCHEM PODGL7062-36-00 12:15:0087[facility] HermannCHEM FRASG8445-51-10 12:15:0012.5 [facility] LrwjdhlKHRBKUDOLQ3224-95-43 12:15:001.0[facility] HermannHEMATOLOGY 2017-10-23 12:15:002.1[facility] VnqdwvkDWZJRDQJAV7050-25-73 12:15:001.1[facility] IlungynASUOKKTIGV9767-96-11 12:15:003.9[facility] OzdfbufHLSFCBHYLY9301-60-78 12:15:000.1[facility] KgwotfgBSRUIDFQPS0120-09-66 12:15:002+ *ABN*(10/23/17 6:15 AM)[facility] CiquccvNILWXBXPUZ0215-08-94 12:15:000.6[facility] HermannHEMATOLOGY 2017-10-23 12:15:000.1[facility] LsdzhakEABIBAYMCL8534-33-03 12:15:0031.9[facility] GmgmeigDJRQMKDBPF5123-00-16 12:15:0057.8[facility] LzjqvmdBKLNNEMQCI0882-89-38 12:15:00Normal (10/23/17 6:15 AM)[facility] DwmjmyxNFAXEVHQVK0298-80-64 12:15:00 8.2[facility] TcliyeuZRYXIXNADM7838-94-12 12:15:008.6[facility] HermannHEMATOLOGY 2017-10-23 12:15:0026.8[facility] IvmhbngOUZRTXQEDW0916-44-26 12:15:00 Test Item Value Reference Range Interpretation Comments MCH (test code = MCH) 23.4 pg 27.0-31.0 [facility] FmmqbpdOTMKLBHYCG0522-42-61 12:15:0072.7[facility] HermannHEMATOLOGY 2017-10-23 12:15:0032.2[facility] XobreozNZSYQXOTMR7205-40-79 12:15:003.69[facility] CuqbdfkGYZSIIDQXK5593-01-11 12:15:006.7[facility] HuquxviCGCPETZMUA6819-92-09 12:15:009.9[facility] SzqrpssLKJZLCZRGW4814-04-34 12:15:63161Qnshucjt [place] CEMFHKQFHS6326-02-30 12:15:0018.0[facility]annANEMIA CIUVP8842-49-15 09:37:00 391[facility]annANEMIA OKINZ0313-20-57 09:37:0028[facility]annANEMIA STUDY 2017-10-22 09:37:007[facility]annANEMIA CFENI9225-29-63 09:37:78380Lisxpiri HermannANEMIA GPHVG6556-88-45 09:37:005[facility] SwzpwyzZEIYCOMLKMMM5951-82-53 09:37:0013.6[facility] ZeszhkyJPRYEXVYUOSP7783-08-37 09:37:0060[facility] PNEPVLHEIZUK5484-12-40 09:37:009[facility] GxrcetkKDOTSEZAHDBT4253-48-78 09:37:00 1.10[facility] ZsdyqjdMFLNYQXJBMOY7780-74-76 09:37:0028[facility] FOQKAERYFZHF2384-23-29 09:37:32320Komfwhuh ZhfwhrhJRXPAZNPYYCJ4346-25-73 09:37:004.6[facility] ZnhyqioWBOBEUGEWEJO0408-63-90 09:37:60894Lyhrqhjj Julio Cesar BRVVWEKRQGLK1499-89-89 09:37:008.2[facility] VwsdvgvBRJNYXOVHWVK2164-57-28 09:37:21419Kkwqzubx RdqonyeCGTYOCQBXV3103-07-74 09:37:52724Vsjvhlfq Julio Cesar GUKCEFXQFC6595-54-91 09:37:0017.9[facility] EcshpsrCRGYXSAVTG9523-50-62 09:37:00 71.6[facility] GxgvajsWPKMLGWFWV2292-36-89 09:37:0032.3[facility] HermannHEMATOLOGY 2017-10-22 09:37:009.5[facility] MmdyhkbWVZYHPIRKI8114-15-39 09:37:0027.3[facility] TwvqseuGZECLVKXYX1371-40-07 09:37:008.8[facility] JwwcqeoMKVBUQTBQV7491-69-16 09:37:00 Test Item Value Reference Range Interpretation Comments MCH (test code = MCH) 23.1 pg 27.0-31.0 [facility] CpinlwfQYDTYSNCOX6215-64-98 09:37:009.6[facility] HermannHEMATOLOGY 2017-10-22 09:37:003.81[facility] KlawwktOGFJRUHAGH5177-11-58 09:37:002+ *ABN*(10/22/17 3:37 AM)[facility] VwbfnmbQWUBRLWTZQ2257-50-47 09:37:0013.7[facility] EbwvoagDDZSXFKBLG2799-40-32 09:37:007.3[facility] WrwateyCUAPVRWCMY4139-88-17 09:37:0078.6[facility] UatskcxTWIDOAICIK3696-24-46 09:37:000.4[facility] YMUKDYCMVL3058-11-24 09:37:007.5[facility] FhtxrqnOJWWXWWHUW1873-47-56 09:37:001.3 [facility] QqypyjeXFGODUYJUY9854-84-47 09:37:000.7[facility] HermannBLOOD BANK BVNEKBA0501-82-57 17:22:00Negative (10/19/17 11:22 AM)[facility] HermannCHEM PANEL 2017-10-19 17:22:0055[facility] HermannCHEM CNSDC3151-82-55 17:22:0043[facility] HermannCHEM WOZFI9978-02-54 17:22:0029[facility] HermannCHEM YJARZ7836-06-42 17:22:82306Bjelvzrf HermannCHEM DWGRJ4263-20-25 17:22:001.19[facility] HermannCHEM HNPGU8002-29-76 17:22:001.4[facility] HermannCHEM DREFU4579-78-27 17:22:59214 [facility] HermannCHEM NLDQW6106-37-28 17:22:008.2[facility] HermannCHEM PANEL 2017-10-19 17:22:003.7[facility] HermannCHEM BXLUQ6138-84-87 17:22:008.9[facility] HermannCHEM [id number] 17:22:0029[facility] HermannCHEM [id number] 17:22:18386Opoudiqq HermannCHEM JDQLF1718-97-79 17:22:003.7[facility] HermannCHEM [id number] 17:22:04337Rxqudstf HermannCHEM [id number] 17:22:0010 [facility]annCHEM [id number] 17:22:008[facility] HermannCHEM PANEL 2017-10-19 17:22:004.5[facility] HermannCHEM [id number] 17:22:000.8[facility] HermannCHEM UDLXE5714-58-89 17:22:0013.7[facility] HermannCHEM IEPTI7670-31-99 17:22:0092.5[facility] PvgceylQBRRADWSSE9517-31-69 17:22:0028.5[facility] ACICJLJZUZ3507-85-31 17:22:008.8[facility] TcujspuXALBCUDXPE1531-17-93 17:22:000.5 [facility] QjchzcaLNVVLWMTGP5965-73-12 17:22:000.5[facility] HermannHEMATOLOGY 2017-10-19 17:22:000.1[facility] GpjzfjwWFIXNHOWUF4298-85-83 17:22:0052.3[facility] NiokzxuQUKVAKCQAK3275-63-96 17:22:009.3[facility] NjkrqgpLSHITKHMAF3798-04-45 17:22:001.6[facility] RjmfpwrFKQQRXBAQD5902-07-40 17:22:001.1[facility] BDUCDWARPK6697-41-51 17:22:002.9[facility] NebaurkQQTZDVABWR5082-25-43 17:22:002+ *ABN*(10/19/17 11:22 AM)[facility] HqldpsrRZMLQSHCTK2975-39-57 17:22:004.83 [facility] BofvwlnYAAVSFXNMT0681-45-21 17:22:005.5[facility] HermannHEMATOLOGY 2017-10-19 17:22:0011.2[facility] EpfdmucCQLCKXTKWT0955-65-12 17:22:0072.0[facility] BmjhjhaJWTUXHYEWW0002-09-89 17:22:0034.8[facility] OjhzvzaVYFYGXSIDL4243-29-64 17:22:009.3[facility] JiopjgjIZRSZGXJRV7283-87-93 17:22:00 Test Item Value Reference Range Interpretation Comments MCH (test code = MCH) 23.2 pg 27.0-31.0 [facility] JoyggyqVMBMBLIWFW4720-51-92 17:22:0018.5[facility] HermannHEMATOLOGY 2017-10-19 17:22:0032.1[facility] UckoiduJMMZJSFYYH7203-53-73 17:22:97287Eaxjcgje Julio Cesar
[2020-06-11] MEDS ORDERED: ONDANSETRON 4 MG/2 ML VIAL ONE (13:02)
[2020-06-11] MEDS ORDERED: NA CHLORIDE 0.9% 1,000 ML ONE (13:02)
[2020-06-11 13:07] LABS: Absolute Lymphocytes (CBC) 1.2 K/uL (0.7-4.9); Basophils % 0.7 % (0-1.3); Hematocrit 45.3 % (36.0-45.0); Lymphocytes % 40.1 % (15.3-44.8); MPV 10.3 fL (7.6-11.3); RBC Red Blood Cell Count 5.11 M/uL (3.86-4.86)
--- NOTE | 2020-06-11 13:10 | RAD REPORT ---
EXAM DESCRIPTION: RAD - Chest Single View - 06/11/2020 1:02 pm CLINICAL HISTORY: syncope Chest pain. COMPARISON: CHEST SINGLE VIEW dated 09/26/2013; CHEST SINGLE VIEW dated 11/10/2011; CHEST PA AND LAT 2 VIEW dated 07/22/2009 FINDINGS: Portable technique limits examination quality. The lungs are grossly clear. The heart is normal in size. No displaced fractures. IMPRESSION: No acute intrathoracic process suspected.
[2020-06-11 13:41] LABS: ALT/SGPT 31 U/L (12-78); AST/SGOT 51 U/L (15-37); Albumin 3.2 g/dL (3.4-5.0); Alkaline Phosphatase 84 U/L (45-117); BUN Blood Urea Nitrogen 12 mg/dL (7-18); Bicarbonate 28 mmol/L (21-32); Bilirubin Total 1.9 mg/dL (0.2-1.0); Glucose Level 154 mg/dL (74-106); Potassium 3.7 mmol/L (3.5-5.1); Protein, Total 6.6 g/dL (6.4-8.2); Sodium Level 143 mmol/L (136-145); Troponin (Emerg Dept Use Only) < 0.02 ng/mL (0.0-0.045)
[2020-06-11] MEDS ORDERED: ACETAMINOPHEN 500 MG TAB PO PRN (15:48)
[2020-06-11] MEDS: NA CHLORIDE 0.9% 1,000 ML IV SCH ×2 (16:00→18:13)
--- NOTE | 2020-06-11 16:09 | EDPHYS ---
Physician Documentation [facility] Name: Krista Watt Age: 49 yrs Sex: Female : 1970 Arrival Date: 06/11/2020 Time: 12:26 Bed 6 Private MD: Eran Palacios C ED Physician Jimmy Toledo HPI: 06/11 12:48 This 49 yrs old Female presents to ER via Wheelchair with complaints of ps1 Fainting, Nausea/Vomiting. 12:48 Patient had an iron infusion and then went [place] the mall. Did not feel well associated ps1 with a prodrome to syncope with nausea, chills, sweaty. Went to leave and had a witnessed syncopal event. Not in pain at this time. Does not have headache. Hx of syncope in the past. Brought in by private vehicle. . Historical: - Allergies: 12:35 Toprol XL; ll1 - Home Meds: 17:28 Synthroid 300 mcg Oral tab 1 tab once daily [Active]; em - PMHx: 12:35 Thyroid problem; graves disease; Anemia; ll1 - PSHx: 12:35 lap band; ; Cholecystectomy; duodenal switch; ll1 - Social history:: Smoking status: Patient denies any tobacco usage or history of. Patient/guardian denies using alcohol, street drugs, tobacco products. ROS: 12:48 Constitutional: Negative for fever, chills, and weight loss, Eyes: Negative for injury, ps1 pain, redness, and discharge, ENT: Negative for injury, pain, and discharge, Respiratory: Negative for shortness of breath, cough, wheezing, and pleuritic chest pain, MS/Extremity: Negative for injury and deformity, Skin: Negative for injury, rash, and discoloration. 12:48 Cardiovascular: Negative for chest pain, palpitations. 12:48 Abdomen/GI: Positive for nausea and vomiting. 12:48 Neuro: Positive for syncope. Exam: 12:48 Constitutional: This is a well developed, well nourished patient who is awake, alert, ps1 and in no acute distress. Head/Face: Normocephalic, atraumatic. Eyes: Pupils equal round and reactive to light, extra-ocular motions intact. Lids and lashes normal. Conjunctiva and sclera are non-icteric and not injected. Cardiovascular: Regular rate and rhythm. No gallops, murmurs, or rubs. Normal PMI, no JVD. No pulse deficits. Respiratory: Lungs have equal breath sounds bilaterally, clear to auscultation and percussion. No rales, rhonchi or wheezes noted. No increased work of breathing, no retractions or nasal flaring. Abdomen/GI: Soft, non-tender, with normal bowel sounds. No distension or tympany. No guarding or rebound. No evidence of tenderness throughout. Skin: Warm, dry with normal turgor. Normal color with no rashes, no lesions, and no evidence of cellulitis. MS/ Extremity: Pulses equal, no cyanosis. Neurovascular intact. Full, normal range of motion. Neuro: Awake and alert, GCS 15, oriented to person, place, time, and situation. Cranial nerves II-XII grossly intact. Sensory grossly intact. Vital Signs: 12:33 BP 114 / 80; Pulse 76; Resp 18; Temp 97.7; Pulse Ox 100% ; Pain 5/10; ll1 13:05 BP 104 / 48 Supine; Pulse 46; kj1 13:06 BP 89 / 51 Standing; Pulse 91; kj1 13:07 BP 93 / 58 Sitting; Pulse 66; kj1 13:53 BP 115 / 71; Pulse 54; Resp 18; Pulse Ox 99% on R/A; em 14:59 BP 118 / 71; Pulse 45; Resp 16; Pulse Ox 100% on R/A; em 16:22 BP 122 / 60; Pulse 51; Resp 15; Pulse Ox 100% on R/A; Pain 0/10; em 17:08 BP 111 / 59; Pulse 64; Resp 20; Pulse Ox 100% on R/A; Pain 0/10; em MDM: 12:48 Patient medically screened. ps1 16:08 Data reviewed: vital signs, nurses notes, lab test result(s), EKG, radiologic studies, ps1 and as a result, I will admit patient. Counseling: I had a detailed discussion with the patient and/or guardian regarding: the historical points, exam findings, and any diagnostic results supporting the discharge/admit diagnosis, lab results, radiology results, the need for further work-up and treatment in the hospital. 06/11 12:40 Order name: CBC with Diff ps1 06/11 12:40 Order name: CMP ps1 06/11 12:40 Order name: Troponin (emerg Dept Use Only) [facility] 06/11 13:09 Order name: CBC with Automated Diff; Complete Time: 13:22 EDNC 06/11 13:42 Order name: Comprehensive Metabolic Panel; Complete Time: 13:49 EDNC 06/11 13:42 Order name: Troponin (Emerg Dept Use Only); Complete Time: 13:49 EDMS 06/11 12:40 Order name: CXR XRAY [facility] 06/11 12:40 Order name: EKG - Nurse/Tech; Complete Time: 12:55 [facility] 06/11 12:40 Order name: Orthostatic Blood Pressure; Complete Time: 13:11 [facility] 06/11 13:10 Order name: RAD; Complete Time: 13:22 EDNC 06/11 16:07 Order name: Diet Regular; Complete Time: 16:07 em EC:05 Rate is 54 beats/min. Rhythm is regular. QRS [place] is Normal. Right axis deviation ps1 noted. PA interval is normal. QRS interval is normal. QT interval is normal. No Q waves. T waves are Normal. No ST changes noted. Clinical impression: RAD. Possible anterior, age indeterminate. Sinus Bradycardia. Administered Medications: 13:08 Drug: NS 0.9% 1000 ml Route: IV; Rate: 1 bolus; Site: right antecubital; em 16:23 Follow up: IV Status: Completed infusion; IV Intake: 1000ml em 13:08 Drug: Zofran (Ondansetron) 4 mg Route: IVP; Site: right antecubital; em 13:51 Follow up: Response: No adverse reaction; Marked relief of symptoms; Nausea is decreasedem Disposition: 06/11/20 16:08 Hospitalization ordered by Eran Palacios for Inpatient Admission. Preliminary diagnosis is Syncope and collapse. - Bed requested for Telemetry/MedSurg (Inpatient). - Status is Inpatient Admission. em - Condition is Stable. - Problem is new. - Symptoms have improved. Signatures: Dispatcher [employer] Esperanza Zuleta Edgar, RN RN em Jimmy Toledo MD MD ps1 Sukhjinder Laura RN RN ll1 Corrections: (The following items were deleted from the chart) 16:40 16:08 Hospitalization Ordered by Eran Palacios MD for Inpatient Admission. Preliminary bd diagnosis is Syncope and collapse. Bed requested for Telemetry/MedSurg (Inpatient). Status is Inpatient Admission. Condition is Stable. Problem is new. Symptoms have improved. ps1 18:13 16:40 06/11/2020 16:08 Hospitalization Ordered by A Suzanne MORILLO for Inpatient Admission. em Preliminary diagnosis is Syncope and collapse. Bed requested for Telemetry/MedSurg (Inpatient). Status is Inpatient Admission. Condition is Stable. Problem is new. Symptoms have improved. bd
--- NOTE | 2020-06-11 16:09 | ER ---
Nurse's Notes [facility] Name: Krista Watt Age: 49 yrs Sex: Female : 1970 Arrival Date: 06/11/2020 Time: 12:26 Bed 6 Private MD: Eran Palacios C Diagnosis: Syncope and collapse Presentation: 06/11 12:33 Chief complaint: Patient states: Had iron infusion today. Started to have left arm ll1 tightness, nausea, and syncope event after. Scheduled for a bone marrow biopsy , she has had low WBC count recently. Coronavirus screen: Client denies travel out of the [place] in the last 14 days. At this time, the client does not indicate any symptoms associated with coronavirus-19. The client reports previous COVID testing was negative. Ebola Screen: Patient denies travel to an Ebola-affected area in the 21 days before illness onset. Initial Sepsis Screen: Does the patient meet any 2 criteria? No. Patient's initial sepsis screen is negative. Risk Assessment: Do you want to hurt yourself or someone else? Patient reports no desire to harm self or others. Onset of symptoms was June 11, 2020. 12:33 Method Of Arrival: Wheelchair ll1 12:33 Acuity: TERESA 3 ll1 Historical: - Allergies: 12:35 Toprol XL; ll1 - Home Meds: 17:28 Synthroid 300 mcg Oral tab 1 tab once daily [Active]; em - PMHx: 12:35 Thyroid problem; graves disease; Anemia; ll1 - PSHx: 12:35 lap band; ; Cholecystectomy; duodenal switch; ll1 - Social history:: Smoking status: Patient denies any tobacco usage or history of. Patient/guardian denies using alcohol, street drugs, tobacco products. Screenin:50 Abuse screen: Denies threats or abuse. Nutritional screening: No deficits noted. em Tuberculosis screening: No symptoms or risk factors identified. Fall Risk None identified. Assessment: 12:50 General: Appears in no apparent distress. comfortable, Behavior is calm, cooperative, em appropriate for age. Pain:. Pain: Denies pain. Neuro: Level of Consciousness is awake, alert, obeys commands, Oriented to person, place, time, situation, Appropriate for age Reports a syncopal episode. Cardiovascular: Capillary refill < 3 seconds Patient's skin is warm and dry. Rhythm is sinus rhythm. Respiratory: Airway is patent Respiratory effort is even, unlabored, Respiratory pattern is regular, symmetrical. GI: Abdomen is flat, Patient currently denies nausea. Derm: Skin is intact, is healthy with good turgor, Skin is pink, warm \T\ dry. Musculoskeletal: Capillary refill < 3 seconds, Range of motion: intact in all extremities. 13:52 Reassessment: Patient appears in no apparent distress at this time. Patient and/or em family updated on plan of care and expected duration. Pain level reassessed. Patient is alert, oriented x 3, equal unlabored respirations, skin warm/dry/pink. nausea has improved. 15:00 Reassessment: Patient appears in no apparent distress at this time. Patient and/or em family updated on plan of care and expected duration. Pain level reassessed. Patient is alert, oriented x 3, equal unlabored respirations, skin warm/dry/pink. 16:00 Reassessment: Patient appears in no apparent distress at this time. Patient and/or em family updated on plan of care and expected duration. Pain level reassessed. Patient is alert, oriented x 3, equal unlabored respirations, skin warm/dry/pink. 17:00 Reassessment: Patient appears in no apparent distress at this time. Patient and/or em family updated on plan of care and expected duration. Pain level reassessed. Patient is alert, oriented x 3, equal unlabored respirations, skin warm/dry/pink. 17:15 Reassessment: Patient appears in no apparent distress at this time. Patient and/or em family updated on plan of care and expected duration. Pain level reassessed. Patient is alert, oriented x 3, equal unlabored respirations, skin warm/dry/pink. dinner tray given. Vital Signs: 12:33 BP 114 / 80; Pulse 76; Resp 18; Temp 97.7; Pulse Ox 100% ; Pain 5/10; ll1 13:05 BP 104 / 48 Supine; Pulse 46; kj1 13:06 BP 89 / 51 Standing; Pulse 91; kj1 13:07 BP 93 / 58 Sitting; Pulse 66; kj1 13:53 BP 115 / 71; Pulse 54; Resp 18; Pulse Ox 99% on R/A; em 14:59 BP 118 / 71; Pulse 45; Resp 16; Pulse Ox 100% on R/A; em 16:22 BP 122 / 60; Pulse 51; Resp 15; Pulse Ox 100% on R/A; Pain 0/10; em 17:08 BP 111 / 59; Pulse 64; Resp 20; Pulse Ox 100% on R/A; Pain 0/10; em ED Course: 12:26 Patient arrived in ED. mr 12:26 Eran Palacios MD is Private Physician. mr 12:29 Jimmy Toledo MD is Attending Physician. ps1 12:31 Du Laura, RN is Primary Nurse. em 12:34 Triage completed. ll1 12:36 Arm band placed on Patient placed in an exam room, on a stretcher. ll1 12:50 Patient has correct armband on for positive identification. Placed in gown. Bed in low em position. Call light in reach. Side rails up X2. night monitor on. Pulse ox on. NIBP on. 12:55 Initial lab(s) drawn, by ny, sent to lab. Inserted saline lock: 22 gauge in right kj1 antecubital area, using aseptic technique. Blood collected. 16:08 Eran Palacios MD is Hospitalizing Provider. ps1 17:57 No provider procedures requiring assistance completed. Patient admitted, IV remains in em place. Administered Medications: 13:08 Drug: NS 0.9% 1000 ml Route: IV; Rate: 1 bolus; Site: right antecubital; em 16:23 Follow up: IV Status: Completed infusion; IV Intake: 1000ml em 13:08 Drug: Zofran (Ondansetron) 4 mg Route: IVP; Site: right antecubital; em 13:51 Follow up: Response: No adverse reaction; Marked relief of symptoms; Nausea is decreasedem Intake: 16:23 IV: 1000ml; Total: 1000ml. em Outcome: 16:08 Decision to Hospitalize by Provider. ps1 17:57 Admitted to Med/surg accompanied by tech, via wheelchair, room 219. em 17:57 Condition: good 17:57 Instructed on the need for admit, Demonstrated understanding of instructions. 18:13 Patient left the ED. em Signatures: Debra Hooper mr Du Laura, RN RN em Jimmy Toledo MD MD ps1 Emeli Frias kj1 Sukhjinder Laura RN RN ll1 Corrections: (The following items were deleted from the chart) 12:36 12:33 Chief complaint: Patient states: Had iron infusion today. Started to have left ll1 arm tightness, nausea, and syncope event after. ll1
[2020-06-11 22:11] VITALS: BMI 24.3
[2020-06-12] MEDS: NA CHLORIDE 0.9% 1,000 ML IV SCH (04:03)
[2020-06-12 04:11] LABS: Absolute Lymphocytes (CBC) 1.3 K/uL (0.7-4.9); Basophils % 0.7 % (0-1.3); Hematocrit 34.3 % (36.0-45.0); Lymphocytes % 28.7 % (15.3-44.8); MPV 10.7 fL (7.6-11.3); RBC Red Blood Cell Count 3.96 M/uL (3.86-4.86)
[2020-06-12 08:17] VITALS: O2SAT 97
[2020-06-12 10:12] VITALS: BP 135/63; TEMP 98.2
--- NOTE | 2020-06-13 07:30 | EKG ---
Test Date: 2020-06-11 Test Time: 12:49:23 [employer]ural [employer]: [employer] MEASUREMENT RESULTS: Intervals: Rate: 54 DC: 160 QRSD: 86 QT: 454 QTc: 430 [place]: P: 87 DC: 160 QRS: 92 T: 76 INTERPRETIVE STATEMENTS: Sinus bradycardia Rightward axis Cannot rule out Anterior infarct, age undetermined Abnormal ECG Compared to ECG 09/26/2013 12:01:20 Right-axis deviation now present Myocardial infarct finding still present Electronically Signed On 06-13-20 07:28:48 CDT by Herminio Davis
--- NOTE | 2020-06-17 06:18 | HP ---
Date of Admission: 06/11/2020 Chief Complaint: Fainting spell. History Of Present Illness: This is a 49-year-old pleasant female patient, who actually has iron def iciency anemia and gets IV iron infusion at office of Dr. Edwards. She gets this infusion from time to time. Yesterday, she had her infusion and she was getting different type of IV iron formulation. IV iron that she was getting in the past, never had any side effect or problems with that, but because of insurance formulary problem, the patient says that yesterday she got different type of IV iron and she had some pain in her left hand area soon after this IV iron infusion was done. After she left [facility], she went to local restaurant to have a lunch with her . While she was at the [facility] urant, she feel problem with bloating type of feeling in her stomach, felt like she had excessive artem unt of gas and some stomach upset. She got nauseated. So, and patient decided to leave rest [facility] to go home and as they were outside the restaurant walking all of a sudden she fainted on the floor. She denies any free fall or injury and someone assisted her to get up and to seat on a nearby bench and her brought her to emergency room in her car. After she came to the ER, she had e pisode of vomiting. She denies any chest pain or shortness of breath. She has not had any other pro blem after she came to emergency room and after she was admitted to the hospital. Her blood pressure was on the low side with systolic around 88, 89. She was given IV fluid and this morning when I saw her, she was feeling much better and reported no complaints. She denies any blood in stool. No fev er. No chills. Allergies: TO TOPROL. Medications: Synthroid 300 mcg p.o. daily and she takes other multiple vitamin supplements. Review of Systems: Cardiovascular: As mentioned above. GI: As mentioned above. All other systems reviewed and negative. Past Medical History: Significant for Graves disease, status post radio active iodine treatment in and subsequently now has hypothyroidism, hyperlipidemia, positive FATEMEH, iron-deficiency anemia, de pression, vitamin D deficiency, vitamin A deficiency. Past Surgical History: Gastric banding 2009, gastric sleeve with duodenal operation 10/21/2017, C-se ction, carpal tunnel surgery. Family History: Father has diabetes and hypothyroidism. Mother with hypertension. Sister with diab etes. Social History: Negative for smoking. Use of alcohol occasional. Physical Examination: Vital Signs: Blood pressure 114/80, pulse 76, respiratory rate 18, temperature 97.7, oxygen saturati on 100%. In the emergency room her orthostatic vital signs showed supine blood pressure 104/48, sitt ing blood pressure 89/51, and standing blood pressure 93/58. General: Awake, alert, oriented, not in distress. HEENT: Head atraumatic, normocephalic. Conjunctivae nonerythematous. Sclerae white. Mouth, no thr ush or edema noted. Ears/Nose, no mass, lesion, discharge noted. Neck: Supple. No JVD, lymph nodes, bruit, thyromegaly noted. Lungs: Bilateral good equal air entry. Clear to auscultation. No rhonchi. No rales. Heart: Normal heart sounds, no murmur or gallop. Abdomen: Soft, bowel sounds normal. No guarding, rigidity, tenderness, mass, hepatosplenomegaly, dis tention, or bruit noted. Extremities: No leg edema. No calf tenderness. Skin: No rash, ulcer, cellulitis. Lymphatics: No lymph node enlargement in neck, supraclavicular, infraclavicular region. Neuro: No focal neurological deficit. Chest: Unremarkable. External Genitalia: Deferred. Rectal: Deferred. Laboratory Data: White count 3.1, hemoglobin 14.9, platelets 180. Sodium 143, potassium 3.7, chlori de 111, bicarb 28, BUN 12, creatinine 0.81, glucose 154, total bilirubin 1.9, SGOT 51, SGPT 31, album in 3.8. Chest x-ray, no acute cardiopulmonary changes. Hospital Course: After the patient was evaluated in the emergency room, she was admitted to the hosp ital. She was given IV fluid and overnight her condition in the hospital has remained stable. The lexis sweeney had a COVID-19 test done as outpatient past week on Wednesday, result pending. Her TSH was very low and I have asked her to reduce her dose of Synthroid from 300 mcg down to 200 mcg. She had negat alonzo cardiac workup done by her unit nurse in [place] about year or 2 years ago. At this point, th ere are no cardiac concerns. What I suspect she probably had yesterday was vasovagal syncope and det ails were discussed with her. She drinks adequate amount of water and given a day at least 50-60 oun ce of water or more. No need for any further intervention or further workup at this point. The aurelio ent was discharged to go home in stable condition and prescription for lower dose of Synthroid which is 200 mcg daily was sent to her pharmacy. The patient was advised to get repeat blood test done for thyroid in about 6 weeks and she will come to office for that. Final Diagnoses: 1.Syncope, vasovagal syncope. 2.Hypothyroidism, post radiation therapy. 3.History of Graves disease. 4.Iron-deficiency anemia. SHAWN/MODL Voice ID: [id number]
== END 2020-06-12 10:05 | disposition home or self-care (01) ==
LOC: ER 12:23 → ERHOLD 15:48 → INTOOBSV 15:48 → 2ND 17:28
PROVIDERS: ADMIT Internal Medicine; ATTEND Internal Medicine
DX: R55 Syncope and collapse (principal); E89.0 Postprocedural hypothyroidism; D50.9 Iron deficiency anemia, unspecified; R00.1 Bradycardia, unspecified; R94.31 Abnormal electrocardiogram [ECG] [EKG]; E05.00 Thyrotoxicosis with diffuse goiter without thyrotoxic crisis or storm; E78.5 Hyperlipidemia, unspecified; E55.9 Vitamin D deficiency, unspecified; F32.9 Major depressive disorder, single episode, unspecified; E50.9 Vitamin A deficiency, unspecified; Z79.899 Other long term (current) drug therapy; Z98.84 Bariatric surgery status
CPT/HCPCS: 96361; 93005; 85025 ×2; 80048; 36415; 84443; 84484; 80053; 71045; 96374; 99285; J7030 ×3; J2405; G0378 ×3

== ENCOUNTER 2021-01-28 09:30 | Day surgery (SDC) | payer BC ==
[2021-01-22 11:19] LABS: Urine Appearance CLOUDY; Urine Blood 3+ (NEG); Urine Color DK YELLOW; Urine Glucose NEGATIVE (NEG); Urine Protein TRACE (NEG); Urine Specific Gravity 1.025 (1.005-1.030); Urine pH 5.5 (5.0-7.0)
[2021-01-22 11:23] LABS: Urine Bilirubin 1+ (NEG); Urine Microscopic Reflex ORDER UMIC
[2021-01-22 11:25] LABS: Absolute Lymphocytes (CBC) 1.1 K/uL (0.7-4.9); Hematocrit 39.3 % (36.0-45.0); Lymphocytes % 35.2 % (15.3-44.8); MPV 10.2 fL (7.6-11.3); RBC Red Blood Cell Count 4.32 M/uL (3.86-4.86)
[2021-01-22 11:34] LABS: Urine Bacteria <20 /HPF (<20); Urine RBC LOADED /HPF (NONE SEEN)
[2021-01-28] MEDS ORDERED: BUPIVACAINE 0.25% PF 30 ML VIAL ONE (10:07)
[2021-01-28] MEDS ORDERED: NA CHLORIDE 0.9% 1,000 ML ONE (10:07)
[2021-01-28] MEDS ORDERED: ACETAMINOPHEN 500 MG TAB ONE (10:24)
[2021-01-28] MEDS ORDERED: Ringers Lactate 1,000 ML IV ONE ×3 (10:24→14:00)
[2021-01-28] MEDS ORDERED: SCOPOLAMINE HYDROBROMIDE PATCH TD ONE (10:24)
[2021-01-28] MEDS ORDERED: CEFAZOLIN/SWI 2gm 2 GM/20 ML SYR ONE (10:40)
[2021-01-28] MEDS ORDERED: dexAMETHasone 10 MG/ML VIAL ONE (10:52)
[2021-01-28] MEDS ORDERED: MIDAZOLAM HCL 2 MG/2 ML INJ ONE (10:52)
[2021-01-28] MEDS ORDERED: ROCURONIUM 50 MG/5 ML VIAL IV ONE (10:52)
[2021-01-28] MEDS ORDERED: FENTANYL CITR 250 MCG/5 ML ONE (10:52)
[2021-01-28] MEDS ORDERED: ONDANSETRON 4 MG/2 ML VIAL ONE (10:52)
[2021-01-28] MEDS ORDERED: LIDOCAINE 2% MPF 5 ML VIAL ONE (10:52)
[2021-01-28] MEDS ORDERED: propofoL 200 MG/20 ML VIAL IV ONE (10:52)
[2021-01-28] MEDS ORDERED: KETAMINE HCL 500 MG/5 ML VIAL ONE (10:52)
[2021-01-28] MEDS ORDERED: GLYCOPYRROLATE 0.2 MG/ML SYR ONE (11:48)
[2021-01-28] MEDS ORDERED: KETOROLAC 30 MG/ML INJ ONE (14:36)
[2021-01-28 17:02] VITALS: O2SAT 99
[2021-01-28] MEDS ORDERED: IBUPROFEN 400 MG TAB ONE (17:37)
[2021-01-28] MEDS ORDERED: IBUPROFEN 200 MG TAB PO ONE (17:37)
[2021-01-28 18:19] VITALS: BP 126/60; TEMP 97
--- NOTE | 2021-01-28 23:22 | OP ---
Date of Procedure: 01/28/2021 Surgeon: Leanne Garcia MD Preoperative Diagnosis: Abnormal uterine bleeding (AUB-L/a). Postoperative Diagnoses: 1.Abnormal uterine bleeding (AUB-L/a). 2.Very dense anterior abdominal wall, bladder adhesions, omental and small bowel adhesions. 3.Mild uterine prolapse after the uterus was from the adhesions. Procedures Performed: 1.Total laparoscopic hysterectomy, bilateral salpingectomy. 2.Lysis of adhesions, which took at least 50% of this case from the bladder, omentum, small bowel. 3.Uterosacral ligament suspension colpopexy and cystoscopy. Anesthesia: General endotracheal. Specimens: Uterus, bilateral tubes, and left paratubal cyst. Complications: No complications. Drains: No drains. Condition: Stable. Findings: The anterior abdominal wall starting at the level of the low Pfannenstiel scar to above th e level of half the way up to the umbilicus was densely adhered to the uterus as well as the left ant erior broad ligament and the entire anterior cul-de-sac was pulled up to this. Then, omental adhesio ns and small bowel adhesions all the way from the left upper quadrant, left lower quadrant and lower anterior abdominal wall. All these were taken down for me to even get started with the surgery, same thing with the bladder adhesions. They also had to be taken down in order for me to get started wit h the hysterectomy and that took 50% of time. On cystoscopy, both ureteric orifices were completely unremarkable and had good jets of urine and thi s was performed after the uterosacral suspension was performed. Then, there was no evidence of any b ladder trauma and the vaginal cuff closure was done in 2 layers, 1 layer with 0 Vicryl sutures and th e second layer with 2-0 PDS including the uterosacral suspension and then the 0 PDS on the uterosacra l suspension on both sides and then a 2 0 PDS in the center for the second layer of closure. Indications: The patient is a 50-year-old female who came to me for a second opinion after having se en a local flight information expediter who attempted to do endometrial sampling procedure prior to doing an ablation . He was unable to perform this and so the patient then came over. At that time, she had an ultraso und that showed a small fibroid. No other abnormalities were noted. Then, she had endometrial sampl ing to rule out atypia or malignancy in the office and once this was done and there was no atypia or malignancy. We discussed about the alternatives of using just IUD, an ablation with hysteroscopy or hysterectomy, depot medroxyprogesterone was completely decline and pills as well. She has history of lupus and probably oral contraceptives are not the best option for this patient. The patient was leaning towards either the ablation or the hysterectomy and decided to have permanent resolution of the problems, which included pain as well. So, I proceeded with consenting the patien t for hysterectomy, salpingectomy and whatever adhesions had to be taken down in order for me to perf orm the surgery. Procedure In Detail: 2 g of Ancef were given. She was taken back to the OR. She was continued on h er hydroxychloroquine till the end. She was advised to stop this for at least the next 2 weeks. She has done this in the past without any significant problems. She was intubated with endotracheal intubation. Vulva, vagina, and perineum were prepped and draped in a sterile fashion after placing her in Minh stirrups, arms tucked by the side and time-out was do ne. Speculum was placed to expose the cervix. Anterior lip was grasped with 2 Allis clamps and the large VCare introduced into the uterus and fixed in place. The cervix was high. Once the Buckner was placed, then attached for retrograde filling to lower bag, emptied 300. Then, thi s area was draped. 1 cm infraumbilical incision was made with a scalpel after injecting 0.25% Marcaine at the incision s ite. Then, fascia was incised as well with a scalpel, tagged 0 Vicryl sutures on each side. Periton eum entered bluntly. S retractors were placed, Addie introduced, insufflation done, and site of ent ry was checked, unremarkable. There were adhesions all around it as dictated in the findings. So, r ight lower quadrant incision was the only [address] without further surgery. So, a 5 right port was placed under direct vision after injecting with Marcaine with skin and fascia. The n the LigaSure 5 mm was taken curved tip and all the adhesions were taken down in a systematic fashio n creating windows and she had sharped dissection with the bipolar energy. Once all these were dropped, then attention was paid to the left lower quadrant where a 5 port was in troduced. Then the anterior abdominal wall dissection was done to separate the uterus from the retro peritoneal part of the bladder as well as the left anterior broad ligament, left round ligament and t he entire anterior cul-de-sac. Once the plane was developed staying below the level of the fat, the myometrium as best as possible w as taken down. There was a lot of dense gritty scar tissue. I went through this with the help of a sharp cutting knife of the LigaSure, was able to take this, separate the uterus down. Small amount o f myometrium left behind on the peritoneum, which was then cleaned up. Once these adhesions were taken down to create a peritoneal window on the left anterior broad ligamen t, then this was extended towards the round ligament. Then, another peritoneal window placed in the left mesosalpinx lateral to the paratubal cyst. This was opened up and then the tube was dissected w ith the help of the LigaSure and the entire tube was dissected and removed. The fluid from the cyst was drained and then the specimen retrieved through the suprapubic port, which was placed after the a dhesions were taken down. The opposite side round ligament was identified. The broad ligament was opened up proximal to the ro und ligament between the tube and the round and this allowed me to create a good window and the pedic le for the round, which was then taken down with the help of the LigaSure. Then, this let open the t ube. The mesosalpinx was taken down on the right side and the tube severed close to its insertion at the uterus and then this was retrieved. This allowed better visualization for the rest of the disse ction. Utero-ovarian ligament was taken down. Then rest of the posterior part of the round ligament was taken down. Posterior peritoneum was opened up and dissected all the way down to the distal par t of the uterosacral close to the VCare cup. The broad ligament was skeletonized to some extent. It was difficult to discern the bladder at the a nterior cul-de-sac level. So, attention was directed to the opposite side to start the dissection ho pefully to get to the plane on the anterior vaginal wall where I could have normal nonscarred area, w hich could lead me to the opposite side and then the bladder could be dissected off from the lower se gment where the uterine scar was present for her section. Then on the left side and once the round ligament was taken down, followed the plane, posterior broad ligament was also taken down to the level of the uterosacral of the distal part. Then, the broad li gament was skeletonized. Gradually, windows were made taking down the prevesical fat down and dissec ting the bladder down. Once I was in the left paravesical space and I was able to find a plane, whic h was nascent and was present in the anterior vaginal wall and following this to the opposite side. The extent of the bladder adhered was able to be well defined, then this was taken down with the help of sharp dissection as well as with bipolar energy. Once the anterior vaginal wall was cleared up, the vessels were skeletonized on the left side and vessels were taken down. I had taken down the ves sels a little superiorly close to the internal os and therefore dissection had to be performed taking down the cardinal ligaments and going down all the way to the level of the VCare cup. Then on the o pposite side, I was able to open up the right paravesical space, take the bladder, rest of the bladde r down and exposed the anterior vaginal wall, take down the vessels at the level of the internal os a nd then similar dissection was performed as on the opposite side taking the cardinal ligament down an d skeletonizing to the level of the VCare cup. Then, circumferential colpotomy was performed with a monopolar hook blade and the specimen detached and pulled out through the vagina. It was a tight fit , however, was able to be retrieved. Thorough irrigation and suction were performed here and cauterization was performed in the left dista l uterosacral ligament area. After the adhesions were taken down, there was a slight attachment and a drop in the apex of the vagina level 1 support, so plan was to finish the hysterectomy and then be able to reattach the uterosacral ligaments to perform a colpopexy to prevent prolapse. Then, vaginal cuff was closed with the help of 0 Vicryl and 2 simple sutures at both angles and 3 fig [id number] in the center. Then, I went on to place a second layer of closure including the uterosa cral distally after identifying the ureters. A suture was placed at the distal uterosacral along its line, then posterior vaginal wall, anterior vaginal wall, and then a [id number] was done simila r on the opposite side as well, and then 2-0 PDS used to close the second layer of the connective tis shey on the anterior vaginal wall and the posterior vaginal wall together to prevent an apical enteroc brenden as well as prolapse of the vault. After the vault suspension was completed, thorough irrigation and suction was performed. No electric al, mechanical, or thermal injury to the ureters was noted. Bowel was also unremarkable and there wa s good urine output. No evidence of any blood in the urine. All the trocars were removed under direct vision. Patient was reversed from Trendelenburg and all th e gas was desufflated. All the trocars were removed without any problems and injected with 0.25% Mar eliz in skin and fascia. Then, gas was desufflated completely and the umbilical trocar was removed. Fascia was closed with 3-0 Vicryl sutures tied together and simple 3-0 Vicryl suture at the suprapu bic fascial site. All skin incisions were closed with the help of interrupted 4-0 Vicryl sutures and vaginally the occluder was removed and the Buckner as well and cystoscopy performed with 17-Pakistani she ath, 30-degree lens, normal saline, and there were excellent jets of urine from both ureteric orifice s with no evidence of any trauma to the bladder, not even at the dome or the area above the trigone. The hysterectomy scar would be present. Everything appeared to be completely intact. The bladder was then drained. Minimal squamous metaplasia on the trigone. Vagina was cleaned up and scoped and there was excellent support as well as a very good closure of the vaginal cuff. All the instrument, needle, and sponge counts were done and were correct at the end of the case. The patient tolerated the procedure well. JESÚS/ZEV Voice ID: [id number] Report ID: [id number]
== END 2021-01-28 18:10 | disposition home or self-care (01) ==
LOC: OR 09:30
PROVIDERS: ATTEND Obstetrics & Gynecology
PROC: 0UT74ZZ Resection of Bilateral Fallopian Tubes, Percutaneous Endoscopic Approach (ICD-10-PCS; 2021-01-28)
PROC: 0DNU4ZZ Release Omentum, Percutaneous Endoscopic Approach (ICD-10-PCS; 2021-01-28)
PROC: 0TNB4ZZ Release Bladder, Percutaneous Endoscopic Approach (ICD-10-PCS; 2021-01-28)
PROC: 0DN84ZZ Release Small Intestine, Percutaneous Endoscopic Approach (ICD-10-PCS; 2021-01-28)
PROC: 0USG4ZZ Reposition Vagina, Percutaneous Endoscopic Approach (ICD-10-PCS; 2021-01-28)
PROC: 0UT94ZZ Resection of Uterus, Percutaneous Endoscopic Approach (ICD-10-PCS; principal; 2021-01-28 13:15)
DX: N93.9 Abnormal uterine and vaginal bleeding, unspecified (principal); D50.0 Iron deficiency anemia secondary to blood loss (chronic); N92.1 Excessive and frequent menstruation with irregular cycle; D25.9 Leiomyoma of uterus, unspecified; R87.810 Cervical high risk human papillomavirus (HPV) DNA test positive; L93.2 Other local lupus erythematosus; N88.2 Stricture and stenosis of cervix uteri; E03.9 Hypothyroidism, unspecified; Z20.822 Contact with and (suspected) exposure to COVID-19; N32.89 Other specified disorders of bladder; K66.0 Peritoneal adhesions (postprocedural) (postinfection); N83.8 Other noninflammatory disorders of ovary, fallopian tube and broad ligament; N72 Inflammatory disease of cervix uteri; N88.8 Other specified noninflammatory disorders of cervix uteri
CPT/HCPCS: 85025; 36415; 86900; 86850; 81025; 86901; 88307; 58571; 49329; 53899; 44180; 57425; U0003; J2704; J2250; J3010; J1100; J0690; J7120 ×3; J7030; J2405; 81003; 81015; 88305

== ENCOUNTER 2024-06-15 07:10 | Day surgery (SDC) | payer BC ==
[2024-06-12 10:44] LABS: Absolute Eosinophils 0.7 K/uL (0-0.5); Absolute Lymphocytes (CBC) 1.3 K/uL (0.7-4.9); Absolute Monocytes 0.5 K/uL (0.1-1.3); Absolute Neutrophil 2.5 K/uL (1.8-8.0); Basophils % 0.8 % (0-1.3); Eosinophils % 14.5 % (0-4.4); Hematocrit 31.3 % (36.0-45.0); Hemoglobin 10.3 g/dL (12.0-15.0); Lymphocytes % 24.5 % (15.3-44.8); MCH 31.3 pg (27.0-35.0); MCV 94.9 fL (80-100); MPV 9.4 fL (7.6-11.3); Monocytes % 10.4 % (3.3-12.3); Neutrophils % 49.8 % (41.7-73.7); Platelets 291 thou/uL (152-406); Red Cell Distribution Width 14.4 % (12.1-15.2)
[2024-06-12 10:54] LABS: PT Prothrombin Time 10.8 SECONDS (9.4-12.5); PTT, Activated Partial Thromb 31.2 SECONDS (24.3-36.9); Protime INR 0.96
[2024-06-12 11:03] LABS: Anion Gap 3.4 mEq/L (5.0-15.0); Potassium 3.4 mEq/L (3.5-5.1)
[2024-06-12 11:14] LABS: Urine Bilirubin NEGATIVE (Negative); Urine Blood Negative (Negative); Urine Clarity Clear (Clear); Urine Color Yellow (Yellow); Urine Glucose NEGATIVE (Negative); Urine Ketones NEGATIVE (Negative); Urine Microscopic Reflex YN NO UMIC; Urine Nitrite NEGATIVE (Negative); Urine Protein NEGATIVE (Negative); Urine Urobilinogen 1+ (Normal); Urine pH 6.5 (5.0-7.0)
--- NOTE | 2024-06-12 13:44 | EKG ---
Test Date: 2024-06-12 Test Time: 09:58:58 Data Power Consultant: EDWIN MEASUREMENT RESULTS: Intervals: Rate: 54 MO: 174 QRSD: 84 QT: 410 QTc: 388 [place]: P: 62 MO: 174 QRS: 33 T: 64 INTERPRETIVE STATEMENTS: Sinus bradycardia Low voltage QRS Cannot rule out Anterior infarct, age undetermined Abnormal ECG Compared to ECG 06/11/2020 12:49:23 Low QRS voltage now present Right-axis deviation no longer present Myocardial infarct finding still present Electronically Signed On 06-12-24 13:43:14 CDT by Matthew Patton
[2024-06-15] MEDS ORDERED: SCOPOLAMINE HYDROBROMIDE PATCH TD ONE (07:25)
[2024-06-15] MEDS: Ringers Lactate 1,000 ML IV ONE (07:36)
[2024-06-15] MEDS ORDERED: LIDOCAINE HCL/EPINEPHRINE 20 ML MDV ONE (09:28)
[2024-06-15] MEDS ORDERED: LIDOCAINE 2% MPF 5 ML VIAL ONE (10:10)
[2024-06-15] MEDS ORDERED: FENTANYL CITR 100 MCG/2 ML ONE ×2 (10:10→11:10)
[2024-06-15] MEDS ORDERED: MIDAZOLAM HCL 2 MG/2 ML INJ ONE (10:10)
[2024-06-15] MEDS ORDERED: ONDANSETRON 4 MG/2 ML VIAL ONE (10:10)
[2024-06-15] MEDS ORDERED: propofoL 200 MG/20 ML VIAL IV ONE (10:10)
[2024-06-15] MEDS ORDERED: dexAMETHasone 4 MG/ML VIAL ONE (10:50)
[2024-06-15] MEDS: CEFAZOLIN SODIUM 2 GM/VIAL ONE (10:50)
[2024-06-15] MEDS: NA CHLORIDE 0.9% 100 ML ONE (11:05)
[2024-06-15] MEDS ORDERED: EPHEDRINE SULF 50 MG/ML VIAL ONE (11:06)
[2024-06-15] MEDS: CEFAZOLIN SODIUM 1 GM/VIAL ONE (11:10)
[2024-06-15] MEDS: VASOPRESSIN 20 UNIT/ML VIAL ONE (11:12)
[2024-06-15 11:53] VITALS: O2SAT 100
[2024-06-15 14:14] VITALS: BP 109/59; TEMP 97.3
--- NOTE | 2024-06-15 16:05 | OP ---
Date of Procedure: 06/15/2024 Surgeon: Leanne Garcia MD Motion Designer: None. Preoperative Diagnosis: Stress urinary incontinence. Postoperative Diagnosis: Stress urinary incontinence. Procedures Performed: Transobturator midurethral sling and cystoscopy (Solyx). Anesthesia: General with LMA. Specimen: None. Complications: None. Drains: Buckner catheter and vaginal packing. Findings: UVJ or ureterovesical junction significantly subluxated. After the sling was placed, cyst oscopy showed good ureteric efflux bilaterally. No evidence of foreign body trauma in the bladder, o n careful examination. Urethra unremarkable as well. The sling was appropriately tensioned in the mid urethral area after both of the anchors were positio fe optimally, Metzenbaum scissors was easily able to be slid between the urethra and the sling, but with slight pillowing effect once the instrument was removed. Lateral vaginal fornices were examined with palpation. No evidence of any trauma or perforation of the vaginal epithelium with a sling or the anchor. Indication: The patient is a 53-year-old female presented with stress urinary incontinence. She und erwent pelvic floor muscle rehab. Her incontinence has not significantly improved on urodynamics. H er mid-urethral closure pressure was 53 and reproducible stress urinary incontinence was noted with V alsalva. So discussed about sling bulking. No other abdominal procedures were being performed, so r etropubic urethropexy was not discussed with the patient. Description Of Operation: After informed consent was obtained, patient understanding all the complic ations including bleeding, infection, urinary retention, bladder injury, urethral injury, need for re vision, catheterization, very rare fistula formation. All of these were reviewed and then re-consent ed in the preoperative area and taken back to the OR. The patient had history of breast implant infection, but this has improved and she just recently had a surgery a week ago. Currently, without any infection or any antibiotics. 2 g of Ancef was given p reoperatively here. She was taken back to the OR, placed in supine fashion on the operating table, after general anesthes ia was given, placed in dorsal lithotomy position using Minh stirrups. Lower abdomen, medial thighs , and vulva, vagina, and perineum were prepped and draped in a sterile fashion. Buckner was placed to drain the bladder and retracted superiorly after clamping it with a Tasha. Urethrovesical junction w as identified by gently tugging on the catheter to identify this. This could also be visually correl ated to the because of anatomical changes. The lateral aspects of the mid urethra were held with 2 Allis clamps, then injected under the epithel ium with the help of dilute 1% lidocaine with the epinephrine, 10 cc was injected in the center as we ll as both sides. 15 blade was used to make an incision that was 1.5 cm long. After passing through the vaginal epithelium, sub-epithelium and connective tissue, the lateral dissection was started. O nce the pocket was created with the scalpel to start and then [place] were taken to advance and open the tunnel going to the ipsilateral obturator space. Once I perforated the obturator membrane, then the scissors were opened up to widen the tract as I withdrew the instrument back. Similar dissection pe rformed on the opposite side without any difficult problems. Solyx sling was opened and soaked in antibiotic solution. The center was marked with a 3-0 Vicryl lo ose stitch. The anchor was loaded onto the needle passer and this was passed through the created santos brayden all the way to the obturator internus muscle. Here, there was 1 pop on the right side where it f elt like it was anchored well. The needle was deployed and removed and a gentle tug given to ensure that its anchor was optimal. Once this was the case, then I did the same procedure on the opposite s karin. However, on this side, once the anchor was placed to the obturator internus, I waited to make s ure that the center suture was central and that tensioning was checked and was appropriate. Then, th e needle order was undeployed and removed. The angle of passing was at 45 degrees with leaning the h andle lap to the contralateral thigh and gently using the forefinger, the anchor was advanced. Irrig ation with antibiotic solution was done. Tensioning under the sling was tested again with the Lynette luis scissors, and once this was satisfactory, the stitch in the center was cut. Then vaginal epithe lium and connective tissue all were closed with a continuous running 3-0 Vicryl lock stitch. Buckner was removed. Cystoscopy was performed with a 17-Bengali sheath, 30 degree lens, normal saline, and good both lateral aspects of the bladder immediately lateral to the internal urethral meatus were reviewed all the way from bottom to the top and then the entire bladder was well visualized. The ef flux of the ureters was normal. Then, after removing the cystoscope, the Buckner was then replaced. T he vaginal fornices were checked and there was no evidence of perforation or areas that were too thin . Instrument, needle, and sponge counts were correct at the end of the case. A vaginal packing was placed and she was transferred to the recovery room in a stable condition. She will have a voiding t rial later today and then at 1 week postop. JESÚS/ZEV Voice ID: [id number] Report ID: [id number]
== END 2024-06-15 13:48 | disposition home or self-care (01) ==
LOC: OR 07:10
PROVIDERS: ATTEND Obstetrics & Gynecology
PROC: 0TSD0ZZ Reposition Urethra, Open Approach (ICD-10-PCS; principal; 2024-06-15 09:00)
DX: N39.3 Stress incontinence (female) (male) (principal); E03.9 Hypothyroidism, unspecified; M32.9 Systemic lupus erythematosus, unspecified; K75.9 Inflammatory liver disease, unspecified; Z98.82 Breast implant status
CPT/HCPCS: 36415; 80048; 81003; 85025; 85610; 85730; 86850; 86900; 86901; 93005; C1771; J0690; J1100; J2001; J2250; J2405; J2704; J3010; J7120

== ENCOUNTER 2024-12-01 08:40 | Observation (INO) | payer BC, SELFPAY ==
[2024-12-01] MEDS ORDERED: NA CHLORIDE 0.9% 1,000 ML ONE (08:52)
[2024-12-01 09:03] LABS: Absolute Eosinophils 0.1 K/uL (0-0.5); Absolute Lymphocytes (CBC) 1.4 K/uL (0.7-4.9); Absolute Monocytes 0.5 K/uL (0.1-1.3); Absolute Neutrophil 1.4 K/uL (1.8-8.0); Basophils % 0.9 % (0-1.3); Eosinophils % 4.1 % (0-4.4); Hematocrit 39.9 % (36.0-45.0); Hemoglobin 13.2 g/dL (12.0-15.0); Lymphocytes % 40.7 % (15.3-44.8); Monocytes % 14.8 % (3.3-12.3); Neutrophils % 39.5 % (41.7-73.7); Nucleated Red Blood Cells % 0.1 % (0-0); Platelets 199 thou/uL (152-406); RBC Red Blood Cell Count 4.53 M/uL (3.86-4.86); Red Cell Distribution Width 16.5 % (12.1-15.2)
[2024-12-01 09:06] LABS: PT Prothrombin Time 12.2 SECONDS (9.4-12.5); PTT, Activated Partial Thromb 33.8 SECONDS (24.3-36.9); Protime INR 1.16
[2024-12-01 09:10] LABS: SARS-CoV-2 Antigen CONTROL BLUE LINE VIS/BG OK; SARS-CoV-2 Antigen Rapid Res Negative (Negative)
[2024-12-01 09:17] LABS: Albumin 3.1 g/dL (3.4-5.0); Albumin/Globulin Ratio 0.8 (1.1-1.8); Anion Gap 8.3 mEq/L (5.0-15.0); Bilirubin Direct 0.4 mg/dL (0-0.2); Bilirubin Indirect, Calculated 0.9 mg/dL (0.2-0.8); Bilirubin Total 1.3 mg/dL (0.2-1.0); Globulin 4.1 g/dL (2.3-3.5); Magnesium 2.1 mg/dL (1.6-2.4); Potassium 3.3 mEq/L (3.5-5.1); Protein, Total 7.2 g/dL (6.4-8.2); Troponin High Sensitivity 6.3 pg/mL (<58.9)
--- NOTE | 2024-12-01 09:34 | RAD REPORT ---
EXAMINATION: CT HEAD WITHOUT CONTRAST CT CERVICAL SPINE WITHOUT CONTRAST CLINICAL INDICATION: Syncope. Head and neck injury status post fall. Head and neck pain TECHNIQUE: Axial CT images from the skull base to the vertex without intravenous contrast. Axial CT i mages through the cervical spine were obtained without intravenous contrast. Sagittal and coronal reformatted images were created from the data set. Coronal and sagittal reformatted images were creat ed from the data set. One or more of the following dose reduction techniques were used: Automated exposure control, adjustment of the mA and/or kV according to patient size, and/or iterative reconstr uction. Unless otherwise specified, incidental findings do not require dedicated imaging follow-up. [id number]. Comparison: none FINDINGS: Right frontal scalp hematoma. An intracranial bleed is not seen. Ventricles are normal in caliber. No significant hypodensity within the brain No extra-axial fluid collection. No fluid within the sinuses/mastoids No fracture or dislocation is seen involving the cervical spine. IMPRESSION: No acute intracranial abnormality noted A cervical fracture is not seen. If the patient continues to have symptoms to suggest acute TILE PROFESSIONAL/spinal pathology then MRI would be rec ommended
--- NOTE | 2024-12-01 09:48 | RAD REPORT ---
Procedure: Chest Single View HISTORY: Syncope with fall COMPARISON: 2023 FINDINGS: The lungs appear clear of acute infiltrate. No significant pleural effusion noted. The heart is normal size. IMPRESSION: No acute abnormality is displayed.
--- NOTE | 2024-12-01 10:42 | EDPHYS ---
Physician Documentation [facility] Name: Krista Watt Age: 54 yrs Sex: Female : 1970 Arrival Date: 12/01/2024 Time: 08:40 Bed 8 Private MD: ED Physician Lorenzo Jama HPI: 12/01 10:15 This 54 yrs old Female presents to ER via Wheelchair with complaints of Passed Out ms3 Prior To Arrival. 10:15 Krista Watt, a 54-year-old female, presents to the emergency department ms3 following a syncopal episode. She reports feeling light-headed and dizzy before the episode, which occurred while she was sitting. She believes she might have been dehydrated, as the room felt very hot, and she attempted to get water. She does not recall falling but found herself on the ground afterward. She reports associated nausea but denies vomiting, chest pain, shortness of breath, or any blood loss. She reports an overall weakness but no specific numbness. She has no history of similar episodes in the past.. 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 - Infectious Disease History:: Denies. - Social history:: Smoking status: Patient denies any tobacco usage or history of. ROS: 10:15 Cardiovascular: Negative for chest pain, and palpitations. Abdomen/GI: Negative for ms3 abdominal pain, nausea, vomiting, diarrhea, and constipation, MS/Extremity: Negative for injury and deformity, 10:15 Constitutional: Positive for Fever yesterday, 10:15 Neuro: Positive for syncope, Exam: 10:15 Constitutional: This is a well developed, well nourished patient who is awake, alert, ms3 and in no acute distress. Respiratory: Lungs have equal breath sounds bilaterally, clear to auscultation and percussion. No rales, rhonchi or wheezes noted. No increased work of breathing, no retractions or nasal flaring. Abdomen/GI: Soft, non-tender, with normal bowel sounds. No distension or tympany. No guarding or rebound. No evidence of tenderness throughout. 10:15 Cardiovascular: Rate: bradycardic, Rhythm: regular, Pulses: no pulse deficits are appreciated, 10:15 ECG was reviewed by the Attending Physician. Vital Signs: 08:52 BP 104 / 63; Pulse 44; Resp 20; Temp 97.8(TE); Pulse Ox 96% on R/A; Weight 71.67 kg; ld1 Height 5 ft. 7 in. ; Pain 0/10; 09:30 BP 101 / 57; Pulse 48; Resp 18; Pulse Ox 100% on R/A; ld1 10:30 BP 119 / 66; Pulse 52; Resp 18; Pulse Ox 100% on R/A; ld1 11:30 BP 132 / 74; Pulse 46; Resp 18; Pulse Ox 98% on R/A; ld1 12:30 BP 119 / 70; Pulse 50; Resp 18; Pulse Ox 98% on R/A; ld1 13:30 BP 124 / 73; Pulse 48; Resp 18; Pulse Ox 100% on R/A; ld1 16:52 BP 135 / 72 Supine; Pulse 50; nh2 16:53 BP 123 / 78 Sitting; Pulse 48; nh2 16:53 BP 125 / 81 Standing; Pulse 58; nh2 19:21 BP 122 / 68; Pulse 61; Resp 18; Pulse Ox 100% ; vc1 08:52 Body Mass Index 24.75 (71.67 kg, 170.18 cm) ld1 08:52 Pain Scale: Adult ld1 MDM: 08:40 Medical Screening Exam initiated ms3 10:15 Differential Diagnosis: cardiac arrhythmia, idiopathic syncope, vasovagal episode. ms3 11:13 Data reviewed: vital signs, nurses notes, lab test result(s), EKG, radiologic studies, ms3 and as a result, I will admit patient. Consideration of Admission/Observation Patient was admitted/placed on observation. Management of patient was discussed with the following: Hospitalist: Dora Payne NP, on behalf of Dr Vargas. I considered the following discharge prescriptions or medication management in the emergency department Medications were administered in the Emergency Department. See MAR. Independent interpretation of the following test(s) in the Emergency Department EKG: See my EKG interpretation above. Counseling: I had a detailed discussion with the patient and/or guardian regarding the historical points, exam findings, and any diagnostic results supporting the discharge/admit diagnosis, lab results, radiology results, the need for further work-up and treatment in the hospital. ED course: Discussed labs, EKG, imaging with the patient. Discussed necessity for observation and patient understands agrees with plan. All questions were answered.. 12/01 08:41 Order name: Basic Metabolic Panel; Complete Time: 09:59 ms3 12/01 08:41 Order name: CBC with Diff; Complete Time: 09:59 ms3 12/01 08:41 Order name: Hepatic Function; Complete Time: 09:59 ms3 12/01 08:41 Order name: Magnesium; Complete Time: 09:59 ms3 12/01 08:41 Order name: Protime (+inr); Complete Time: 09:59 ms3 12/01 08:41 Order name: Ptt, Activated; Complete Time: 09:59 ms3 12/01 08:41 Order name: Troponin High Sensitivity; Complete Time: 09:59 ms3 12/01 08:41 Order name: Urinalysis w/ reflexes ms3 12/01 08:42 Order name: Flu; Complete Time: 09:59 ms3 12/01 08:42 Order name: SARS RAPID; Complete Time: 09:59 ms3 12/01 10:49 Order name: Influenza Screen (A EDMS 12/01 10:49 Order name: Urine Microscopic Reflex EDMS 12/01 10:53 Order name: Lab Add On EDMS 12/01 11:01 Order name: Ferritin; Complete Time: 12:52 EDMS 12/01 11:01 Order name: Iron; Complete Time: 12:52 EDMS 12/01 08:41 Order name: CT Head C Spine; Complete Time: 09:59 ms3 12/01 08:41 Order name: Chest Single View XRAY; Complete Time: 09:59 ms3 12/01 10:53 Order name: Echo with Doppler EDMS 12/01 08:41 Order name: Cardiac monitoring; Complete Time: 08:51 ms3 12/01 08:41 Order name: EKG - Nurse/Tech; Complete Time: 08:51 ms3 12/01 08:41 Order name: IV Saline Lock; Complete Time: 08:58 ms3 12/01 08:41 Order name: Labs collected and sent; Complete Time: 08:58 ms3 12/01 08:41 Order name: NPO; Complete Time: 08:51 ms3 12/01 08:41 Order name: O2 Per Protocol; Complete Time: 08:51 ms3 12/01 08:41 Order name: O2 Sat Monitoring; Complete Time: 08:51 ms3 EC:15 Rate is 44 beats/min. Rhythm is regular. QRS [place] is Normal. [place] interval is normal. QRS ms3 interval is normal. Clinical impression: Sinus bradycardia. Interpreted by me. Reviewed by me. Administered Medications: 08:55 Drug: NS 0.9% IV 1000 ml IV at 1 bolus Per protocol; to be given as a bolus over 60 ll1 minutes Route: IV; Rate: 1 bolus; Site: right antecubital; 11:35 Follow up: Response: No adverse reaction; IV Status: Completed infusion; IV Intake: ld1 1000ml 11:13 Drug: Potassium Chloride PO 40 mEq PO once Route: PO; ap3 11:35 Follow up: Response: No adverse reaction ld1 11:13 Drug: Calcium Carbonate PO 500 mg 2 tablet PO once Route: PO; ap3 11:35 Follow up: Response: No adverse reaction ld1 11:35 Drug: Ketorolac IVP 10 mg 10 mg IVP once Route: IVP; Site: right antecubital; ld1 Disposition Summary: 12/01/24 10:41 Hospitalization Ordered Notes: Hospitalization Status: Observation ms3 Provider: Dariusz Vargas ms3 Condition: Stable ms3 Problem: new ms3 Symptoms: are resolved ms3 Bed/Room Type: Standard ms3 Location: Telemetry/MedSurg (observation)(12/01/24 18:48) ja Room Assignment: 419(12/01/24 18:48) [facility] Diagnosis - Syncope ms3 - Sinus [place] ms3 - Hypokalemia ms3 - Hypocalcemia ms3 Forms: - Medication Reconciliation Form ms3 - SBAR form ms3 - Leadership Thank You Letter ms3 Signatures: Dispatcher [employer] EDMS Woodrow Monae RN RN ja1 Brittani Mccracken RN RN ap3 Sukhjinder Laura RN RN ll1 Lorenzo Jama DO DO ms3 Angelia Jama RN RN ld1 Tasha Lopez RN RN kb3 Corrections: (The following items were deleted from the chart) 08:41 08:41 BASIC METABOLIC PANEL+C.LAB.BRZ ordered. EDMS EDMS 08:41 08:41 CBC+H.LAB.BRZ ordered. EDMS EDMS 08:41 08:41 HEPATIC FUNCTION+C.LAB.BRZ ordered. EDMS EDMS 08:41 08:41 MAGNESIUM+C.LAB.BRZ ordered. EDMS EDMS 08:41 08:41 PROTIME (+INR)+COAG.LAB.BRZ ordered. EDMS EDMS 08:41 08:41 PTT, ACTIVATED+COAG.LAB.BRZ ordered. EDMS EDMS 08:41 08:41 Troponin High Sensitivity+C.LAB.BRZ ordered. EDMS EDMS 08:41 08:41 Urinalysis+U.LAB.BRZ ordered. EDMS EDMS 08:42 08:42 Head C Spine MPR Wo Con+CT.RAD.BRZ ordered. EDMS EDMS 08:42 08:42 Chest Single View+RAD.RAD.BRZ ordered. EDMS EDMS 08:42 08:42 Influenza Screen (A \T\ B)+BA.LAB.BRZ ordered. EDMS EDMS 08:42 08:42 SARS-COV-2 Antigen Rapid+I.LAB.BRZ ordered. EDMS EDMS 15:47 10:41 Telemetry/MedSurg (observation) ms3 kb3 15:47 10:41 ms3 kb3 18:48 15:47 [facility] ER HOLD kb3 ja1 18:48 15:47 ERHOLD- kb3 ja1
--- NOTE | 2024-12-01 10:42 | ER ---
Nurse's Notes [facility] Name: Krista Watt Age: 54 yrs Sex: Female : 1970 Arrival Date: 12/01/2024 Time: 08:40 Bed 8 Private MD: Diagnosis: Syncope;Sinus [place];Hypokalemia;Hypocalcemia Presentation: 12/01 08:52 Chief complaint: Patient states: Passed out at work - started feeling dizzy, went to ld1 get water. Coworkers report syncopal episode. Sent home from work yesterday for N/V. Coronavirus screen: At this time, the client does not indicate any symptoms associated with coronavirus-19. Ebola Screen: No symptoms or risks identified at this time. Initial Sepsis Screen: Does the patient meet any 2 criteria? No. Patient's initial sepsis screen is negative. Does the patient have a suspected source of infection? No. Patient's initial sepsis screen is negative. Risk Assessment: Do you want to hurt yourself or someone else? Patient reports no desire to harm self or others. Onset of symptoms was December 01, 2024. 08:52 Method Of Arrival: Wheelchair ld1 08:52 Acuity: TERESA 2 ld1 Triage Assessment: 08:52 General: Appears in no apparent distress. comfortable, Behavior is calm, cooperative, ld1 appropriate for age. Pain: Denies pain. EENT: No signs and/or symptoms were reported regarding the EENT system. Neuro: Level of Consciousness is awake, alert, obeys commands, Oriented to person, place, time, situation, Appropriate for age Reports dizziness, a syncopal episode. Cardiovascular: Capillary refill < 3 seconds Rhythm is sinus bradycardia. Respiratory: Airway is patent Respiratory effort is even, unlabored. GI: Abdomen is flat, non-distended, Reports nausea. : No signs and/or symptoms were reported regarding the genitourinary system. Derm: Skin is diaphoretic, Skin temperature is cool. Musculoskeletal: No signs and/or symptoms reported regarding the musculoskeletal system. 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 - Infectious Disease History:: Denies. - Social history:: Smoking status: Patient denies any tobacco usage or history of. Screenin:55 [facility] ED Fall Risk Assessment (Adult) History of falling in the last 3 months, ld1 including since admission Yes- single mechanical fall (1 pt) Confusion or Disorientation No (0 pts) Intoxicated or Sedated No (0 pts) Impaired Gait No (0 pts) Mobility Assist Device Used No (0 pt) Altered Elimination No (0 pt) Score/Fall Risk Level 0 - 2 = Low Risk Oriented to surroundings, Hourly rounding (assess needs \T\ fall precautionary measures) done. Abuse screen: Denies threats or abuse. Denies injuries from another. Nutritional screening: No deficits noted. Tuberculosis screening: No symptoms or risk factors identified. Assessment: 08:55 Reassessment: See triage assessment. Received patient in wheelchair from business 1 office. Pt reports feeling dizzy, went to get water. Syncopal episode occurred. Upon arrival pt denies pain. 10:00 Reassessment: No changes from previously documented assessment. Patient and/or family ll1 updated on plan of care and expected duration. Pain level reassessed. 11:30 Reassessment: Patient appears in no apparent distress at this time. No changes from ld1 previously documented assessment. Patient and/or family updated on plan of care and expected duration. Pain level reassessed. Patient denies pain at this time. 12:15 Reassessment: No changes from previously documented assessment. Patient and/or family ld1 updated on plan of care and expected duration. Pain level reassessed. 13:30 Reassessment: Patient appears in no apparent distress at this time. No changes from ld1 previously documented assessment. Patient and/or family updated on plan of care and expected duration. Pain level reassessed. Patient denies pain at this time. 14:30 Reassessment: Patient appears in no apparent distress at this time. Patient and/or ld1 family updated on plan of care and expected duration. Pain level reassessed. 15:30 Reassessment: Patient appears in no apparent distress at this time. No changes from ld1 previously documented assessment. Patient and/or family updated on plan of care and expected duration. Pain level reassessed. 16:48 Reassessment: Patient appears in no apparent distress at this time. No changes from ld1 previously documented assessment. Patient and/or family updated on plan of care and expected duration. Pain level reassessed. Vital Signs: 08:52 BP 104 / 63; Pulse 44; Resp 20; Temp 97.8(TE); Pulse Ox 96% on R/A; Weight 71.67 kg; ld1 Height 5 ft. 7 in. ; Pain 0/10; 09:30 BP 101 / 57; Pulse 48; Resp 18; Pulse Ox 100% on R/A; ld1 10:30 BP 119 / 66; Pulse 52; Resp 18; Pulse Ox 100% on R/A; ld1 11:30 BP 132 / 74; Pulse 46; Resp 18; Pulse Ox 98% on R/A; ld1 12:30 BP 119 / 70; Pulse 50; Resp 18; Pulse Ox 98% on R/A; ld1 13:30 BP 124 / 73; Pulse 48; Resp 18; Pulse Ox 100% on R/A; ld1 16:52 BP 135 / 72 Supine; Pulse 50; nh2 16:53 BP 123 / 78 Sitting; Pulse 48; nh2 16:53 BP 125 / 81 Standing; Pulse 58; nh2 19:21 BP 122 / 68; Pulse 61; Resp 18; Pulse Ox 100% ; vc1 08:52 Body Mass Index 24.75 (71.67 kg, 170.18 cm) ld1 08:52 Pain Scale: Adult ld1 ED Course: 08:40 Patient arrived in ED. eb 08:40 Lorenzo Jama DO is Attending Physician. ms3 08:40 Arm band placed on Patient placed in an exam room, on a stretcher. ll1 08:51 Sukhjinder Laura, RN is Primary Nurse. ll1 08:54 Triage completed. ld1 08:55 Patient has correct armband on for positive identification. Placed in gown. Bed in low ld1 position. Call light in reach. Side rails up X2. 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 Pulse ox on. NIBP on. Door closed. Noise minimized. Warm blanket given. 08:55 Provided Education on: ER procedures and process. ll1 08:55 No provider procedures requiring assistance completed. Inserted saline lock: 20 gauge ld1 in right antecubital area, using aseptic technique. Blood collected. Flushed with 10 mL NS. 09:19 CT Head C Spine In Process Unspecified. EDMS 09:41 Chest Single View XRAY In Process Unspecified. EDMS 10:00 Report given to Brittani Mansfield RN. ll1 10:41 Dariusz Vargas is Hospitalizing Provider. ms3 16:49 Patient admitted, IV remains in place. ld1 Administered Medications: 08:55 Drug: NS 0.9% IV 1000 ml IV at 1 bolus Per protocol; to be given as a bolus over 60 ll1 minutes Route: IV; Rate: 1 bolus; Site: right antecubital; 11:35 Follow up: Response: No adverse reaction; IV Status: Completed infusion; IV Intake: ld1 1000ml 11:13 Drug: Potassium Chloride PO 40 mEq PO once Route: PO; ap3 11:35 Follow up: Response: No adverse reaction ld1 11:13 Drug: Calcium Carbonate PO 500 mg 2 tablet PO once Route: PO; ap3 11:35 Follow up: Response: No adverse reaction ld1 11:35 Drug: Ketorolac IVP 10 mg 10 mg IVP once Route: IVP; Site: right antecubital; ld1 Medication: 08:55 VIS not applicable for this client. ld1 Intake: 11:35 IV: 1000ml; Total: 1000ml. ld1 Outcome: 10:41 Decision to Hospitalize by Provider. ms3 16:00 Admitted to ER Hold. Please see [facility] for further documentation. ld1 16:00 Condition: stable 16:00 Instructed on the need for admit, 20:48 Patient left the ED. bm8 Signatures: Dispatcher [employer] EDMS Brittani Mccracken RN RN ap3 Marguerite Reese Lynsay RN RN ll1 Lorenzo Jama DO DO ms3 Angelia Jama RN RN ld1 Mayte Sparrow RN RN vc1 Obey Enriquez, RN RN bm8 Tonio Coker, Win nh2
[2024-12-01] MEDS ORDERED: SODIUM CHLORIDE 0.9% 10ML INJ IV PRN (10:49)
[2024-12-01] MEDS ORDERED: POTASSIUM CL SA 10 MEQ TAB PO ONE (10:53)
--- NOTE | 2024-12-01 10:59 | P.SSS ---
Patient History Date of Service: 12/01/24 Reason for admission: Vasovagal syncope History of Present Illness: Ms. Watt is a 54-year-old female with a past medical history of thyroid disease and vitamin/iron deficiency, who is status post gastric bypass, hysterectomy, urethral sling, breast augmentation, and tummy tuck. 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 Upon her return this morning she felt a little dizzy and got up to get some water. Her coworker witnessed her have a syncopal episode striking her right frontal skull. She was taken to the emergency department, by wheelchair, and noted to be pale, diaphoretic, and bradycardic in the 40s, with a frontal scalp contusion. She received a 1 L bolus of normal saline and we were asked to admit for syncope. Imaging studies: CT head and C-spine negative for acute fine, chest x-ray also n egative. Allergies metoprolol [From Toprol XL] Allergy (Severe, Verified 06/12/24 09:46) Blisters in mouth Home Medications: Cholecalciferol (Vitamin D3) [Vitamin D3] 1 cap PO DAILY 06/12/24 Ferrous Sulfate [Iron] 1 tab PO DAILY 06/12/24 Folic Acid 1 mg PO DAILY 06/12/24 Hormone Pellet 1 implant IM SEECOM 06/12/24 Levothyroxine Sodium [Synthroid] 175 mcg PO DAILY 06/12/24 Thyroid Tab [[place] Thyroid] 30 mg PO DAILY 06/12/24 - Past Medical/Surgical History Diabetic: No -: Graves -: thyroid disease -: anemia -: irin diffusions as needed -: choley -: c-sect Psychosocial/ Personal History: She lives at home with her and has 2 sons - Social History Smoking Status: Unknown if ever smoked Alcohol use: Yes CD- Drugs: No Caffeine use: Yes Place of Residence: Home Review of Systems 10-point ROS is otherwise unremarkable General: Fever, Weakness, Malaise, As per HPI Eyes: Unremarkable ENT: Unremarkable Respiratory: Unremarkable Cardiovascular: Light Headedness Gastrointestinal: Nausea, Vomiting, As per HPI Genitourinary: Unremarkable Musculoskeletal: Unremarkable Integumentary: Unremarkable Neurological: Weakness, As per HPI Lymphatics: Unremarkable Physical Examination - Physical Exam General: Cooperative, Other (Pale) HEENT: Normocephalic, Other (Right frontal hematoma) Neck: Supple, 2+ carotid pulse no bruit Cardiovascular: Regular rate/rhythm, Normal S1 S2, Other (Bradycardia) Capillary refill: <2 Seconds Integumentary: No rashes Lymphatics: No axilla or inguinal lymphadenopathy External genitalia: Deferred Rectal: Deferred - Studies Laboratory Data (last 24 hrs) 12/01/24 12/01/24 12/01/24 08:49 08:49 08:49 WBC 3.50 L Hgb 13.2 Hct 39.9 Plt Count 199 PT 12.2 INR 1.16 APTT 33.8 Sodium 138 Potassium 3.3 L BUN 10 Creatinine 1.08 H Glucose 148 H Magnesium 2.1 Total Bilirubin 1.3 H AST 36 ALT 36 Alkaline Phosphatase 131 H Microbiology Data (last 24 hrs): 12/01/24 08:49 Nasopharnyx Influenza Type A Antigen Screen - Final 12/01/24 08:49 Nasopharnyx Influenza Type B Antigen Screen - Final Treatment Summary: Vasovagal syncope Recent viral illness with low-grade fever and nausea and vomiting History of anemia status post gastric bypass Frontal hematoma IVF Iron studies and add mag level CT head and C-spine in the ED negative for any acute findings Neurochecks every 4 Echo Flu and COVID viral swabs Urine micro VTE/GI prophylaxis - Disposition Disposition: ROUTINE DISCHARGE Followup: NONE,NONE [Primary Care Provider] - Prvt As Needed
[2024-12-01] MEDS: CALCIUM CARBONATE CHEW 500MG TAB PO ONE (11:00)
[2024-12-01] MEDS: Ringers Lactate 1,000 ML IV SCH (11:00)
[2024-12-01] MEDS: PANTOPRAZOLE 40 MG INJ IVP ONE (11:00)
[2024-12-01] MEDS ORDERED: CALCIUM CARBONATE CHEW 500MG TAB ONE (11:02)
[2024-12-01] MEDS ORDERED: KETOROLAC 30 MG/ML INJ ONE (11:26)
[2024-12-01 11:55] LABS: Ferritin 20.6 ng/mL (8-252)
--- NOTE | 2024-12-01 13:34 | ECHO ---
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-BC 2-DIMENSIONAL: YES M.MODE: YES DOPPLER: YES COLOR FLOW: YES TDS: YES PORTABLE: YES DEFINITY: NO BUBBLE STUDY: NO DIAGNOSIS: SYNCOPE CARDIAC HISTORY: CATHERIZATION: NO SURGERY: NO PROSTHETIC VALVE: NO PACEMAKER: NO MEASUREMENTS (cm) DIASTOLIC (NORMALS) SYSTOLIC (NORMALS) IVSd 1.2 (0.6-1.2) LA Diam 2.8 (1.9-4.0) LVEF 60-65% LVIDd 4.5 (3.5-5.7) LVIDs 2.8 (2.0-3.5) %FS 38% LVPWd 1.2 (0.6-1.2) Ao Diam 2.9 (2.0-3.7) 2 DIMENSIONAL ASSESSMENT: RIGHT ATRIUM: NORMAL LEFT ATRIUM: NORMAL RIGHT VENTRICLE: NORMAL LEFT VENTRICLE: NORMAL TRICUSPID VALVE: NORMAL MITRAL VALVE: NORMAL PULMONIC VALVE: NORMAL AORTIC VALVE: NORMAL PERICARDIAL EFFUSION: NONE AORTIC ROOT: NORMAL LEFT VENTRICULAR WALL MOTION: NORMAL. DOPPLER/COLOR FLOW: NORMAL. COMMENTS: 1. NORMAL LEFT VENTRICULAR SYSTOLIC FUNCTION, EJECTION FRACTION 60-65%, NORMAL WALL MOTION. 2. NORMAL DIASTOLIC FUNCTION. TECHNOLOGIST: MILAGROS ORTEZ
[2024-12-01 16:36] VITALS: BMI 26.4
[2024-12-01] MEDS ORDERED: PANTOPRAZOLE 40 MG INJ ONE (16:40)
[2024-12-01] MEDS ORDERED: Ringers Lactate 1,000 ML IV ONE (16:40)
[2024-12-01] MEDS ORDERED: ACETAMINOPHEN 500 MG TAB ONE (18:42)
[2024-12-01] MEDS: ACETAMINOPHEN 500 MG TAB PO ONE (18:43)
[2024-12-01 20:59] VITALS: O2SAT 100
[2024-12-02 08:24] VITALS: BP 123/55; TEMP 97.8
--- NOTE | 2024-12-02 09:54 | P.DS ---
Admission Date: 12/01/24 Discharge Date: 12/02/24 Disposition: ROUTINE DISCHARGE Discharge Condition: GOOD Reason for Admission: Vasovagal syncope Brief History of Present Illness: Ms. Watt is a 54-year-old female with a past medical history of thyroid disease and vitamin/iron deficiency, who is status post gastric bypass, hysterectomy, urethral sling, breast augmentation, and tummy tuck. 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 Upon her return this morning she felt a little dizzy and got up to get some water. Her coworker witnessed her have a syncopal episode striking her right frontal skull. She was taken to the emergency department, by wheelchair, and noted to be pale, diaphoretic, and bradycardic in the 40s, with a frontal scalp contusion. She received a 1 L bolus of normal saline and we were asked to admit for syncope. Imaging studies: CT head and C-spine negative for acute fine, chest x-ray also negative. Hospital Course: Her twelve-lead EKG revealed sinus bradycardia with heart rate of 50s per minute, no heart block, her clinical manifestation consistent with vasovagal syncope. She did not experience no more syncopal attack and her blood pressure is well-controlled and no episode of hypotension during observation. She tested negative for influenza A&B and COVID 19 by rapid antigen test. Transthoracic echocardiogram showed normal left ventricular ejection fraction, no structural heart disease. Patient is being discharged home. #1 vasovagal syncope #2 chronic sinus bradycardia #3 history of hypothyroidism on levothyroxine Vital Signs/Physical Exam: Temp Pulse Resp BP Pulse Ox 97.8 F 52 20 123/55 L 91 12/02/24 08:00 12/02/24 08:00 12/02/24 08:00 12/02/24 08:00 12/02/24 08:00 Other Physical/Emotional Findings: - Physical Exam. General: Not acutely ill looking, in no apparent distress,. HEENT: Normocephalic, atraumatic, nonicteric sclera, nonanemic conjunctive. Neck: Supple, without JVD or goiter or thyroid mass. Respiratory: Normal breathing effort, clear to auscultation bilaterally, no crackles no wheezing or rhonchi. Cardiovascular: Regular rate and rhythm, S1, S2 normal, no murmur no gallop. Gastrointestinal: Normal bowel sounds, nondistended, nontender, No ascites, , No masses, no hepatosplenomegaly. Extremities : No clubbing, No peripheral edema,. Integumentary: No rashes, petechia, suspected lesions. Lymphatics: No axilla or cervical lymphadenopathy. Neurology; alert awake oriented x3, no focal neurologic deficit, normal affection . mood and behavior. Laboratory Data at Discharge: WBC 3.50 thou/uL (4.3-10.9) L 12/01/24 08:49 Hgb 13.2 g/dL (12.0-15.0) 12/01/24 08:49 Hct 39.9 % (36.0-45.0) 12/01/24 08:49 Plt Count 199 thou/uL (152-406) 12/01/24 08:49 PT 12.2 SECONDS (9.4-12.5) 12/01/24 08:49 INR 1.16 12/01/24 08:49 APTT 33.8 SECONDS (24.3-36.9) 12/01/24 08:49 Sodium 138 mEq/L (136-145) 12/01/24 08:49 Potassium 3.3 mEq/L (3.5-5.1) L 12/01/24 08:49 BUN 10 mg/dL (7-18) 12/01/24 08:49 Creatinine 1.08 mg/dL (0.55-1.02) H 12/01/24 08:49 Glucose 148 mg/dL (74-106) H 12/01/24 08:49 Magnesium 2.1 mg/dL (1.6-2.4) 12/01/24 08:49 Total Bilirubin 1.3 mg/dL (0.2-1.0) H 12/01/24 08:49 AST 36 U/L (15-37) 12/01/24 08:49 ALT 36 U/L (13-56) 12/01/24 08:49 Alkaline Phosphatase 131 U/L (45-117) H 12/01/24 08:49 Home Medications: Cholecalciferol (Vitamin D3) [Vitamin D3] 1 cap PO DAILY 06/12/24 Ferrous Sulfate [Iron] 1 tab PO DAILY 06/12/24 Folic Acid 1 mg PO DAILY 06/12/24 Hormone Pellet 1 implant IM SEECOM 06/12/24 Levothyroxine Sodium [Synthroid] 175 mcg PO DAILY 06/12/24 Thyroid Tab [[place] Thyroid*] 30 mg PO DAILY 06/12/24 Physician Discharge Instructions: Okay to return to work on December 04, 2024Wednesday without restriction Diet: Regular Activity: Ad ree Followup: NONE,NONE [UNKNOWN] - Prvt MD As Needed
== END 2024-12-02 10:50 | disposition home or self-care (01) ==
LOC: ER 08:40 → ERHOLD 15:17 → 4TH 19:05
PROVIDERS: ADMIT Internal Medicine; ATTEND Internal Medicine
DX: R55 Syncope and collapse (principal); R00.1 Bradycardia, unspecified; E87.6 Hypokalemia; E83.51 Hypocalcemia; R11.2 Nausea with vomiting, unspecified; R53.1 Weakness; E05.00 Thyrotoxicosis with diffuse goiter without thyrotoxic crisis or storm; E03.9 Hypothyroidism, unspecified; S00.83XA Contusion of other part of head, initial encounter; W18.39XA Other fall on same level, initial encounter; Y93.89 Activity, other specified; Y92.238 Other place in hospital as the place of occurrence of the external cause; Y99.0 Civilian activity done for income or pay; Z98.84 Bariatric surgery status; Z11.52 Encounter for screening for COVID-19; Z79.890 Hormone replacement therapy
CPT/HCPCS: 96361; 93306; 85025; 80048; 36415; 83735; 85610; 80076; 85730; 84484; 82728; 83540; 87804 ×2; 70450; 72125; 71045; 96374; 99285; 87811; J2470; J7120 ×3; J7030; 93005; G0378